=== PATIENT | male | born 2005 | race Caucasian/White ===

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

== ENCOUNTER 2025-02-25 19:40 | Inpatient (IN) | payer MEDICAID, SELFPAY ==
[2025-02-25 19:21] VITALS: BP 163/101; PULSE 123; RESP 16; TEMP 36.8; O2SAT 97; BMI 22.9
[2025-02-25] MEDS: nicotine 21 mg Patch 1 PATCH TRANSDERMA (21:12)
[2025-02-25 21:25] LABS: Basophils % 0.3 %; Eosinophils % 0.1 %; Hematocrit 39.3 % (37-53); Lymphocytes # 0.7 10^3/uL (1.5-6.5); Lymphocytes % 6.3 %; Mean Corpuscular HGB Conc 35.4 g/dL (30-55); Mean Corpuscular Hemoglobin 31.7 pg (27-33); Mean Corpuscular Volume 89.5 fl (82-101); Mean Platelet Volume 12.2 fL (7.4-10.4); Monocytes % 9.5 %; Neutrophils # 8.97 10^3/uL (1.8-8.0); Neutrophils % 83.6 %; Nucleated Red Blood Cells % 0 %; Platelet Count 193 10^3/cmm (157-399); Red Blood Count 4.39 10^6/uL (3.85-5.65); Red Cell Distribution Width 12.3 % (12.1-15.1); White Blood Count 10.73 10^3/uL (4.5-13.0)
[2025-02-25 21:30] LABS: Bilirubin Urine 1+ (Negative); Blood Urine Negative (Negative); Glucose Urine UA Negative (Normal); Ketones Urine Trace (Negative); Leukocyte Esterase Urine Negative (Negative); Nitrate Urine Negative (Negative); Protein Urine 1+ (Negative); Specific Gravity, Urine 1.021 (1.005-1.030); Urine Appearance Clear (CLEAR); Urine Color Dark Yellow (Yellow); pH Urine 6.5 (5-7)
[2025-02-25 21:35] LABS: Add Urine Microscopic? YES; Bacteria Urine None Seen /hpf; Hyaline Casts Urine 11.16 /lpf; RBC Urine 0-2 /hpf (0-2); Squamous Epithelial Cell Urine 0-5 /hpf (0-5); WBC Urine 0-5 /hpf (0-5)
[2025-02-25 21:37] LABS: Amphetamines Screen Urine Negative (Negative); Barbiturates Screen Urine Negative (Negative); Benzodiazepines Screen Urine Negative (Negative); Cocaine Screen Urine Negative (Negative); Opiate Screen Urine Negative (Negative); PCP Screen Urine Negative (Negative); THC Screen Urine Positive (Negative)
[2025-02-25 21:46] LABS: Alanine Aminotransferase 16 U/L (0-41); Albumin Level 4.5 g/dL (3.5-5.2); Alkaline Phosphatase 68 U/L (40-130); Anion Gap 15.7 (5-19); Aspartate Amino Transferase 17 U/L (0-40); Blood Urea Nitrogen 9 mg/dL (6-20); Calcium 9.8 mg/dL (8.5-10.5); Carbon Dioxide 25 mmol/L (22-29); Chloride 103 mmol/L (98-107); Creatinine Clr Calc Pharmacy 135.9943; Globulin 2.9 g/dL (1.3-4.6); Glomerular Filtration Rate 108.7 mL/min (90-130); Glucose 97 mg/dL (65-115); Osmolality Calculated 289 mOsm/kg (285-295); Potassium 3.7 mmol/L (3.5-5.1); Sodium 140 mmol/L (136-145); Total Bilirubin 0.5 mg/dL (0.15-1.2); Total Protein 7.4 g/dL (6.6-8.7)
[2025-02-25 21:51] LABS: Acetaminophen < 5.0 ug/mL (10-30); Salicylate < 0.3 mg/dL (3-10)
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
--- NOTE | 2025-02-26 00:48 | PC.NURSE ---
96 Hour Involuntary Hold Patient Rights have been reviewed with the patient and a copy of the same has been provided to him. Director Of Scientific Research was present at bedside during the presentation of Rights.
[2025-02-26 01:12] VITALS: BP 157/107; PULSE 95; RESP 18; TEMP 36.8; O2SAT 95
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
[2025-02-26 06:00] VITALS: BP 103/60; PULSE 80; RESP 16; O2SAT 98
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
[2025-02-26] MEDS: nicotine 21 mg Patch 1 PATCH TRANSDERMA (08:10)
[2025-02-26 14:00] VITALS: BP 135/88; PULSE 79; RESP 17; O2SAT 100
[2025-02-26] MEDS: nicotine 2 mg Gum BUCCAL (19:44)
[2025-02-26] MEDS: diphenhydrAMINE 50 mg Capsule PO (19:46)
[2025-02-26 22:00] VITALS: BP 121/68; PULSE 103; RESP 18; TEMP 37.1; O2SAT 97
[2025-02-27] MEDS: ondansetron 4 MG Tablet PO (01:15)
[2025-02-27 06:00] VITALS: BP 108/59; PULSE 79; RESP 16; TEMP 36.7; O2SAT 98
[2025-02-27] MEDS: nicotine 21 mg Patch 1 PATCH TRANSDERMA (08:30)
[2025-02-27 14:00] VITALS: BP 134/78; PULSE 116; RESP 16; TEMP 36.8; O2SAT 97
[2025-02-27] MEDS: nicotine 4 mg lozenge MUCOUS MEM ×2 (17:42→20:45)
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
[2025-02-27 19:22] VITALS: BP 141/82; PULSE 104; RESP 18; TEMP 36.9; O2SAT 99
[2025-02-28 06:00] VITALS: BP 104/68; PULSE 86; RESP 16; TEMP 36.7; O2SAT 98
[2025-02-28] MEDS: nicotine 4 mg lozenge MUCOUS MEM ×6 (07:59→21:19)
[2025-02-28 14:00] VITALS: BP 109/73; PULSE 122; RESP 16; TEMP 37.5; O2SAT 96
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
[2025-02-28 19:37] VITALS: BP 127/77; PULSE 115; RESP 18; TEMP 37.9; O2SAT 98
[2025-02-28] MEDS: ondansetron 4 MG Tablet PO (19:55)
[2025-03-01 06:00] VITALS: BP 108/75; PULSE 99; RESP 18; TEMP 36.9; O2SAT 99
[2025-03-01] MEDS: nicotine 4 mg lozenge MUCOUS MEM ×8 (07:17→21:32)
[2025-03-01 14:00] VITALS: BP 115/84; PULSE 109; RESP 18; TEMP 36.8; O2SAT 96
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
[2025-03-01 20:08] VITALS: BP 130/80; PULSE 105; RESP 22; TEMP 36.8; O2SAT 100
[2025-03-01] MEDS: trazodone 50 mg Tablet PO (23:55)
[2025-03-02 06:00] VITALS: BP 101/65; PULSE 82; RESP 16; TEMP 36.4; O2SAT 99
[2025-03-02] MEDS: nicotine 4 mg lozenge MUCOUS MEM ×4 (08:15→15:21)
[2025-03-02 14:00] VITALS: PULSE 107; TEMP 36.9
--- NOTE | 2025-03-02 15:33 | P.NPUDS_ITS ---
Diagnoses at Discharge Discharge Diagnosis (1) PTSD (post-traumatic stress disorder): Status: Inactive (2) MDD (major depressive episode), single episode, severe, no psychosis: Status: Ruled-out (3) Tetrahydrocannabinol (THC) use disorder, mild, abuse: Status: Resolved Reason for Visit Reason for Visit: si Involuntary Hold Information Hold Status: Legal Status: 96 Hour Hold Date/Time Hold Expires: 03/03/2025 @ 0001 96 Hour Hold: 96 Hour Involuntary Admission: No Discharge Data Studies Completed and Pending: Laboratory Results WBC 10.73 10^3/uL (4. 5-13.0) 02/25/25 21:13 RBC 4.39 10^6/uL (3.8 5-5.65) 02/25/25 21:13 Hgb 13.90 g/dL (13.2- 15.6) 02/25/25 21:13 Hct 39.3 % (37-53) 02/25/25 21:13 MCV 89.5 fl (82-101) 02/25/25 21:13 MCH 31.7 pg (27-33) 02/25/25 21:13 MCHC 35.4 g/dL (30-55) 02/25/25 21:13 RDW 12.3 % (12.1-15.1 ) 02/25/25 21:13 Plt Count 193 10^3/cmm (157 -399) 02/25/25 21:13 MPV 12.2 fL (7.4-10.4 ) H 02/25/25 21:13 Neut % (Auto) 83.6 % 02/25/25 21:13 Lymph % (Auto) 6.3 % 02/25/25 21:13 [place] % (Auto) 9.5 % 02/25/25 21:13 Eos % (Auto) 0.1 % 02/25/25 21:13 Baso % (Auto) 0.3 % 02/25/25 21:13 Neut # (Auto) 8.97 10^3/uL (1.8 -8.0) H 02/25/25 21:13 Lymph # (Auto) 0.7 10^3/uL (1.5- 6.5) L 02/25/25 21:13 [place] # (Auto) 1.0 10^3/uL (0.2- 0.9) H 02/25/25 21:13 Eos # (Auto) 0.0 10^3/uL (0.0- 0.8) 02/25/25 21:13 Baso # (Auto) 0.0 10^3/uL (0.0- 0.1) 02/25/25 21:13 Nucleated RBC % (a uto) 0 % 02/25/25 21:13 Nucleated RBCs # 0.0 /100WBC 02/25/25 21:13 Sodium 140 mmol/L (136-1 45) 02/25/25 21:13 Potassium 3.7 mmol/L (3.5-5 .1) 02/25/25 21:13 Chloride 103 mmol/L (98-10 7) 02/25/25 21:13 Carbon Dioxide 25 mmol/L (22-29) 02/25/25 21:13 Anion Gap 15.7 (5-19) 02/25/25 21:13 BUN 9 mg/dL (6-20) 02/25/25 21:13 Creatinine 0.9 mg/dL (0.7-1. 2) 02/25/25 21:13 GFR Calculation 108.7 mL/min (90- 130) 02/25/25 21:13 Glucose 97 mg/dL (65-115) 02/25/25 21:13 Calculated Osmolal ity 289 mOsm/kg (285- 295) 02/25/25 21:13 Calcium 9.8 mg/dL (8.5-10 .5) 02/25/25 21:13 Total Bilirubin 0.5 mg/dL (0.15-1 .2) 02/25/25 21:13 AST 17 U/L (0-40) 02/25/25 21:13 ALT 16 U/L (0-41) 02/25/25 21:13 Alkaline Phosphata se 68 U/L (40-130) 02/25/25 21:13 Total Protein 7.4 g/dL (6.6-8.7 ) 02/25/25 21:13 Albumin 4.5 g/dL (3.5-5.2 ) 02/25/25 21:13 Globulin 2.9 g/dL (1.3-4.6 ) 02/25/25 21:13 Urine Color Dark yellow (Yel low) A 02/25/25 19:40 Urine Appearance Clear (CLEAR) 02/25/25 19:40 Urine pH 6.5 (5-7) 02/25/25 19:40 Ur Specific Gravit y 1.021 (1.005-1.0 30) 02/25/25 19:40 Urine Protein 1+ (Negative) A 02/25/25 19:40 Urine Glucose (UA) Negative (Normal ) 02/25/25 19:40 Urine Ketones Trace (Negative) 02/25/25 19:40 Urine Blood Negative (Negati ve) 02/25/25 19:40 Urine Nitrate Negative (Negati ve) 02/25/25 19:40 Urine Bilirubin 1+ (Negative) H 02/25/25 19:40 Urine Urobilinogen 2.0 mg/dL (Negati ve) H 02/25/25 19:40 Ur Leukocyte Luz ase Negative (Negati ve) 02/25/25 19:40 Urine RBC 0-2 /hpf (0-2) 02/25/25 19:40 Urine WBC 0-5 /hpf (0-5) 02/25/25 19:40 Ur Squamous Epith Cells 0-5 /hpf (0-5) 02/25/25 19:40 Amorphous Sediment Not Reportable 02/25/25 19:40 Urine Bacteria None seen /hpf (N ONE) 02/25/25 19:40 Hyaline Casts 11.16 /lpf 02/25/25 19:40 Salicylates < 0.3 mg/dL (3-10 ) L 02/25/25 21:13 Urine Opiates Scre en Negative ng/mL (N egative) 02/25/25 19:40 Acetaminophen < 5.0 ug/mL (10-3 0) L 02/25/25 21:13 Ur Barbiturates Sc reen Negative ng/mL (N egative) 02/25/25 19:40 Ur Phencyclidine S crn Negative ng/mL (N egative) 02/25/25 19:40 Ur Amphetamines Sc reen Negative ng/mL (N egative) 02/25/25 19:40 U Benzodiazepines Scrn Negative ng/mL (N egative) 02/25/25 19:40 Urine Cocaine Scre en Negative ng/mL (N egative) 02/25/25 19:40 U Marijuana (THC) Screen Positive ng/mL (N egative) H 02/25/25 19:40 Vitals: Last Vital Signs Temp 98.4 F 03/02/25 14:00 Pulse 107 H 03/02/25 14:00 Resp 16 03/02/25 06:00 BP 101/65 03/02/25 06:00 Pulse Ox 99 03/02/25 06:00 O2 Del Method Room Air 03/02/25 06:00 Discharge Plan Discharge Patient Disposition: Home Condition: Stable Prescriptions: Continued methocarbamol 750 mg tablet 750 mg PO Q6H PRN (Reason: spasms) Qty: 20 0RF ondansetron 4 mg tablet,disintegrating 4 mg PO Q6H PRN (Reason: nausea and vomiting) Qty: 14 0RF lansoprazole [Prevacid] 30 mg capsule,delayed release(DR/EC) 30 mg PO DAILY Qty: 30 0RF ketorolac 10 mg tablet 10 mg PO TID PRN (Reason: pain) Qty: 10 0RF Discharge Orders: Discharge Order (Routine); Ordered 03/02/25 Ordered By: Eddie Rogers Referrals: Regina Garcia[facility] [Other] - 03/27/25 10:00 am Charlotte Reynoso FNP [Nurse Practitioner, Nurse Practitioner] - 03/07/25 1:05 pm Referral Note: Hospital followup Starla Campbell DO [Primary Care Provider, Family Practice] Discharge Diet: Regular Discharge Activity: Resume usual activity Patient Instructions: Opioid Safety Discharge Attestations NPU Time Spent in Discharge Care*: less than 30 min Specific Discharge Activities: Specific discharge activities: educating patient, discussing with transplant case manager/social workers/dc planners, documenting/other paperwork and evaluating patient/reviewing data Coding Level of Care Code Acute Code for g Fwd Diagnoses PTSD (post-traumatic stress disorder) F43.10 MDD (major depressive episode), single episode, severe, no psychosis F32.2 Tetrahydrocannabinol (THC) use disorder, mild, abuse F12.10
[2025-03-02 15:49] VITALS: BP 101/65; PULSE 107; RESP 18; TEMP 36.9; O2SAT 99
== END 2025-03-02 16:12 | disposition home or self-care (01) | DRG 885 ==
LOC: ER 02-26 00:18 → NP 02-26 00:42
PROVIDERS: Emergency Medicine; Admitting Provider Psychiatry & Neurology Psychiatry; Emergency Provider Emergency Medicine; PCP Family Medicine; Visit Provider Psychiatry & Neurology Psychiatry
DX: F33.2 Major depressive disorder, recurrent severe without psychotic features (principal); R45.851 Suicidal ideations; F41.9 Anxiety disorder, unspecified; Z79.899 Other long term (current) drug therapy; F43.10 Post-traumatic stress disorder, unspecified; F12.10 Cannabis abuse, uncomplicated
CPT/HCPCS: 36415; 80053; 80306; 80307; 81001; 85025; 97150; 97165; 99285; J9999; Q0162; Q0163

== ENCOUNTER 2025-07-18 22:07 | Emergency (ER) | payer MEDICAID, SELFPAY ==
--- OUTSIDE RECORDS SUMMARY | 2025-07-16 11:08 | XMS_ITS | Encounter Summary ---
Author Organization [facility] Address 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 No 07/16/2025 Transportation Needs Answer Date Record ed Have you gone without health care because you didn t have a way to get there? Or worry about transportation for future doctor visits, supervisor picking crew medication, etc.? No 2024 Housing Stability Answer Date Recorded Do you worry you won t have a steady place to sleep or struggle to pay rent or mortgage? No 07/16/2025 Utility Needs Answer Date Recorded Do you have difficulty payin g for utility costs (electric, water or gas bills)? No 07/16/2025 Medication Needs Answer Date Recorded Have you skipped taking medi cation due to cost or worry you can t afford new medications? No 07/16/2025 Feeling Safe Answer Date Recorded Are you in a relationship wi th someone who hurts you emotionally and/or physically? 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 Gender Identity Not on file Sexual Orientation Not on file documented as of this encounter Last Filed Vital Signs Vital Sign Reading Time Taken Comments Blood Pressure 130/72 07/16/2025 1:38 PM CDT Pulse 91 07/16/2025 12:15 PM CDT Temperature 36.6 C (97.8 F) 07/16/2025 1:38 PM CDT Respiratory Rate 18 07/16/2025 1:38 PM CDT Oxygen Saturation 97% 07/16/2025 1:38 PM CDT Inhaled Oxygen Concentration - - Weight 62.5 kg (137 lb 12.8 oz) 025 11:08 AM CDT Height 177.8 cm (5' 10 ) 07/16/2025 11: 08 AM CDT Body Mass Index 19.77 07/16/2025 11:08 AM CDT documented in this encounter Discharge Instructions * Discharge Instructions* Heath Castellano MD - 07/16/2025 1:44 PM CDT Please restart fluids slowly without drinking any soda or juices and definitely avoid coffee and energy drinks. Please follow-up with your primary doctor to monitor your liver function to make sure that this gets better. If his symptoms do not improve or get worse and you are continuing to have the issues, return to the ER. Please continue taking Compazine you may take the next dose at approximately 3 PM today 5 mg make sure you take it with Benadryl 25 mg. Please avoid anything with animal products to not have recurrence of the allergic reaction. * Attachments The following attachments cannot be sent through Care Everywhere. * Nausea and Vomiting (Bruneian) * Prochlorperazine (Bruneian) documented in this encounter Medications at Time of Discharge EPINEPHrine (EPIPEN) 0.3 mg/0.3 mL Auto-InjectorInd ications:Allergy to galactose-alpha- 1,3-galactose Inject 0.3 mL (0.3 mg) by intramuscular injection 1 time daily as needed for Anaphylaxis. 2 Each 3 11/28/2024 prochlorperazine maleate (COMPAZINE) 5 mg tablet Take 1 Tablet (5 mg) by mouth every 8 hours as needed for Nausea/Emesis. 9 Tablet 07/16/2025 documented as of this encounter ED Notes * Radha Trujillo RN - 07/16/2025 1:40 PM CDT States ready to go home. * Radha Trujillo RN - 07/16/2025 1:40 PM CDT Patient resting. * Radha Trujillo RN - 07/16/2025 11:33 AM CDT Patient arrived states he is having allergic reaction possibly to the flour from the chicken he hadlast night, states it is my alpha gal. No hives noted. Patient having dry heaves alternating with small amount of emesis. States he has abdominal pain. * Heath Castellano MD - 07/16/2025 11:06 AM CDT 07/16/25 1:07 PM HISTORY OF PRESENT ILLNESS History of Present Illness This is a 19-year-old female presenting with vomiting. She suspects that her symptoms may be a reaction to the chicken she consumed the previous night. She reports feeling extremely cold and has been experiencing excessive sweating. Her symptoms began around 9:30 AM today, including difficulty breathing and abdominal pain, which she rates as an 8 or 9 on a scale of 1 to 10. She has vomited several times since the onset of her symptoms. She has not taken any Tylenol recently and does not consume alcohol. She continues to use marijuana. She reports that her nausea has subsided, but she still feels the urge to vomit. She also notes a decrease in shaking. She reports no known medical conditions or allergies and is not currently on any medications. SOCIAL HISTORY She does not drink alcohol. She admits to smoking marijuana. PAST MEDICAL HISTORY REVIEWED MEDICAL: Patient has a past medical history of Generalized anxiety disorder, GERD (gastroesophageal reflux disease), Patient denies relevant medical history, and Peptic ulcer. SURGICAL: Patient has a past surgical history that includes pt denies relevant surgical history. ALLERGIES Iodinated contrast media; Sesame seed; Shrimp; Alpha-gal (yznyhqpck-kxgzx-5,3-galactose); and Milk PHYSICAL EXAM INITIAL VS BP: (!) 161/121 (07/16/25 1108), Heart Rate: 94 bpm (07/16/25 110), Resp: 30 (07/16/25 110), Pulse: 97 (07/16/25 1110), Temp: 97.1 ??F (36.2 ??C) (07/16/25 1108), Temp src: Oral (07/16/25 1300), SpO2: 100 % (07/16/25 1108), Height: 5' 10 (177.8 cm) (07/16/25 1108), Weight: 62.5 kg (137 lb 12.8 oz) (07/16/25 1108), BMI (Calculated): 19.77 (07/16/25 110) No LMP for male patient. Blood pressure 130/72, pulse 91, temperature 97.8 ??F (36.6 ??C), resp. rate 18, height 5' 10 (1.778 m), weight 62.5 kg (137 lb 12.8 oz), SpO2 97%. Physical Exam Vitals and nursing note reviewed. Constitutional: General: He is in acute distress. Appearance: He is normal weight. He is ill-appearing and diaphoretic. HENT: Head: Normocephalic. Mouth/Throat: Mouth: Mucous membranes are moist. Eyes: Extraocular Movements: Extraocular movements intact. Conjunctiva/sclera: Conjunctivae normal. Pupils: Pupils are equal, round, and reactive to light. Cardiovascular: Rate and Rhythm: Normal rate and regular rhythm. Pulses: Normal pulses. Pulmonary: Effort: Pulmonary effort is normal. No respiratory distress. Musculoskeletal: General: Normal range of motion. Skin: General: Skin is warm. Capillary Refill: Capillary refill takes less than 2 seconds. Neurological: General: No focal deficit present. Mental Status: He is alert and oriented to person, place, and time. Mental status is at baseline. Cranial Nerves: No cranial nerve deficit. Psychiatric: Mood and Affect: Mood normal. Behavior: Behavior normal. DIAGNOSTICS LAB: CBC WITH DIFFERENTIAL - Abnormal Result Value WBC 8.6 RBC 4.86 HEMOGLOBIN 15.3 HEMATOCRIT 41.3 MCV 85.0 MCH 31.5 MCHC 37.0 (*) RDW 12.2 RDW-STDEV 36.9 PLATELETS 273 MPV 11.6 NEUTROPHILS 58 LYMPHOCYTES 32 MONOCYTES 7 EOSINOPHILS 3 BASOPHILS 1 IMMATURE GRANULOCYTES 0 NEUTROPHIL ABSOLUTE 4.99 LYMPHOCYTE ABSOLUTE 2.73 MONOCYTE ABSOLUTE 0.63 EOSINOPHIL ABSOLUTE 0.22 BASOPHILS ABSOLUTE 0.05 IMMATURE GRANULOCYTES ABSOLUTE 0.01 COMPREHENSIVE METABOLIC PANEL - Abnormal SODIUM 140 POTASSIUM 3.8 CHLORIDE 102 CO2 20 (*) CALCIUM 10.6 (*) BUN 11 CREATININE 0.96 GLUCOSE 148 (*) TOTAL PROTEIN 8.0 ALBUMIN 5.0 BILIRUBIN TOTAL 0.5 ALKALINE PHOSPHATASE 80 AST 67 (*) ALT 166 (*) GFR >60 ANION GAP 18 LACTIC ACID - Abnormal LACTIC ACID 3.7 (*) URINALYSIS WITH REFLEX MICROSCOPIC - Abnormal COLOR UA Yellow CLARITY UA Clear SPECIFIC GRAVITY UA 1.020 PH UA 7.0 LEUKOCYTE ESTERASE UA Negative NITRITE UA Negative PROTEIN UA 1+ (*) GLUCOSE UA Negative KETONES UA Negative UROBILINOGEN UA 0.2 BILIRUBIN UA Negative BLOOD UA Negative URINALYSIS MICROSCOPY ONLY - Abnormal WBC UA 3-5 (*) RBC UA 0-2 BACTERIA UA Negative EPITHELIAL CELLS, URINE 0-5 HYALINE CAST 0-2 SEDIMENTATION RATE - Normal ESR (SEDIMENTATION RATE) 6 LIPASE - Normal LIPASE 23 C-REACTIVE PROTEIN - Normal CRP <3.0 MAGNESIUM LEVEL - Normal MAGNESIUM 1.8 RADIOLOGY: No orders to display EKG: Results Laboratory Studies Blood work shows some liver inflammation. Results independently interpreted by Heath Castellano MD PROCEDURES Procedures MEDICAL DECISION MAKING AND PLAN OF CARE Assessment & Plan Initial Assessment: Patient presents with vomiting, abdominal pain rated 8-9/10, nausea, and mild difficulty breathing.Symptoms began at 9:30 AM on 07/16/2025. Blood work shows liver inflammation. Differential Diagnosis: - Food poisoning: Possible due to recent chicken consumption. Monitor symptoms. - Marijuana use: Discussed as a potential trigger for vomiting. Advised to discontinue use. - Alcohol consumption: Patient denies alcohol use. Not considered. - Liver inflammation: Blood work indicates liver inflammation. Investigate further. ED Course: - [place] provided for comfort. - Benadryl, Compazine, 1 L of fluids, dexamethasone, famotidine, Zofran, pantoprazole and after allthese treatments were administered, patient continued to have some nausea with feeling of wanting to vomit and Haldol was provided as an injection 2.5 mg. After the Haldol patient felt significant improvement and did not have any more vomiting and felt like he was able to tolerate fluids which was confirmed by p.o. challenge. Patient felt that he was comfortable with going home and continuing his care there. Patient was provided with a prescription of Compazine to take with Benadryl and avoid any foods that contain animal product. Advised to follow-up with his primary care doctor about transaminitis to make sure that stays stable. Lipase and bilirubin levels were normal so at this time concern for any gallbladder disease and blockage was not present, however advised patient to return to the ER if continues to have significant pain, specifically if pain appears in the right upper quadrant. Clinical Impression: - Vomiting - Liver inflammation Follow-Up: - Monitor until vomiting ceases or condition stabilizes. Patient Education: Advised to discontinue marijuana use. Informed Haldol may cause drowsiness. Advised to abstain fromalcohol consumption. Medical Decision Making Amount and/or Complexity of Data Reviewed Labs: ordered. Risk Prescription drug management. Clinical Scoring & Consults Medications Administered During the ED Stay from 07/16/2025 1106 to 07/16/2025 1420 Date/Time Order Dose Route Action 07/16/2025 1119 CDT prochlorperazine (COMPAZINE) injection 5 mg 5 mg IV Given 07/16/2025 1125 CDT diphenhydrAMINE (BENADRYL) injection 25 mg 25 mg IV Given 07/16/2025 1147 CDT sodium chloride 0.9 % bolus solution 1,000 mL 0 mL IV Stopped 07/16/2025 1117 CDT sodium chloride 0.9 % bolus solution 1,000 mL 1,000 mL IV New Bag 07/16/2025 1126 CDT sodium chloride flush injection 10 mL 10 mL IV Given 07/16/2025 1126 CDT sodium chloride flush injection 10 mL 10 mL IV Given 07/16/2025 1116 CDT dexAMETHasone (DECADRON) injection 10 mg 10 mg IV Given 07/16/2025 1123 CDT famotidine PF (PEPCID) 20 mg/2 mL injection 20 mg 20 mg IV Given 07/16/2025 1140 CDT ondansetron (ZOFRAN) 4 mg/2 mL injection 4 mg 4 mg IV Given 07/16/2025 1142 CDT pantoprazole (PROTONIX) 40 mg in sodium chloride 0.9% 10 mL injection 40 mg IV Given 07/16/2025 1303 CDT haloperidol lactate (HALDOL) injection 2.5 mg 2.5 mg IM Given Discharge Medication List as of 07/16/2025 1:48 PM START taking these medications Details prochlorperazine maleate (COMPAZINE) 5 mg tablet Take 1 Tablet (5 mg) by mouth every 8 hours as needed for Nausea/Emesis., Disp-9 Tablet, R-0 CONTINUE these medications which have NOT CHANGED Details EPINEPHrine (EPIPEN) 0.3 mg/0.3 mL Auto-Injector Inject 0.3 mL (0.3 mg) by intramuscular injection 1 time daily as needed for Anaphylaxis., Disp-2 Each, R-3 STOP taking these medications venlafaxine 37.5 mg Extended Release 24 hour tablet Comments: Reason for Stopping: hydrOXYzine HCL (ATARAX) 10 mg tablet Comments: Reason for Stopping: pantoprazole (Protonix) 20 mg Tablet, Delayed Release (E.C.) Comments: Reason for Stopping: famotidine (PEPCID) 40 mg tablet Comments: Reason for Stopping: metoclopramide HCl (REGLAN) 10 mg tablet Comments: Reason for Stopping: ondansetron (ZOFRAN ODT) 8 mg Tablet, Rapid Dissolve Comments: Reason for Stopping: methocarbamoL (ROBAXIN) 750 mg tablet Comments: Reason for Stopping: naproxen (NAPROSYN) 500 mg tablet Comments: Reason for Stopping: fluticasone propionate (FLONASE) 50 mcg/spray [place], Suspension nasal inhaler Comments: Reason for Stopping: LAST VS BP: 130/72 (07/16/25 1338), Heart Rate: (!) 108 bpm (07/16/25 1338), Resp: 18 (07/16/25 1338), Pulse: 91 (07/16/25 1215), Temp: 97.8 ??F (36.6 ??C) (07/16/25 1338), Temp src: Oral (07/16/25 1300), SpO2: 97 % (07/16/25 1338) CLINICAL IMPRESSION Diagnoses Diagnosis Comment Added By Time Added Nausea and vomiting, unspecified vomiting type [R11.2] Heath Castellano MD 07/16/2025 1:43 PM 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 See after visit summary for patient education on discharged patients. 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 # The patient, a 19-year-old female, presented with vomiting, abdominal pain rated 8-9/10, nausea, and mild difficulty breathing. Symptoms began at 9:30 AM on 07/16/2025, suspected to be a reaction to chicken consumed the previous night. The patient reported feeling extremely cold, excessive sweating, and a decrease in shaking. # Abnormal findings included elevated liver transaminase levels, with blood work indicating liver inflammation. The comprehensive metabolic panel showed elevated glucose (148), calcium (10.6), AST (67), ALT (166), and lactic acid (3.7). Urinalysis showed 1+ protein and 3-5 WBCs. # Medications administered included Benadryl, Compazine, 1 L of fluids, dexamethasone, famotidine, Zofran, pantoprazole, and Haldol. After Haldol administration, the patient experienced significant improvement, with no further vomiting and the ability to tolerate fluids. # Differential diagnoses considered were food poisoning, marijuana use, and liver inflammation. The patient was advised to discontinue marijuana use. ## Follow_up_orders: ## # The patient was provided with a prescription for Compazine to take with Benadryl and advised to avoid foods containing animal products. # Follow-up with the primary care doctor is recommended to monitor liver transaminase levels and ensure stability. # The patient was advised to return to the ER if significant pain continues, especially if it appears in the right upper quadrant. # Advised to discontinue marijuana use and abstain from alcohol consumption. ## Home_Situation: ## # No specific factors impairing follow-up care were noted. The patient did not report any transportation, caregiver support, financial, or language barriers. documented in this encounter Plan of Treatment Not on file documented as of this encounter Procedures Procedure Name Priority Date/Time Associated Diagnosis Comments URINALYSIS MICROSCOPY ONLY Stat 07/16/2025 12:59 PM CDT DRUG SCREEN, URINE Stat 07/16/2025 12 :59 PM CDT URINALYSIS W/REFLEX MICROSCOPIC Stat 07/16/2025 12:59 PM CDT LACTIC ACID Stat 07/16/2025 11:11 AM CDT CBC WITH DIFFERENTIAL Stat 07/16/2025 11:11 AM CDT SEDIMENTATION RATE Stat 07/16/2025 11 :11 AM CDT C-REACTIVE PROTEIN Stat 07/16/2025 11 :11 AM CDT MAGNESIUM LEVEL Stat 07/16/2025 11:11 AM CDT LIPASE Stat 07/16/2025 11:11 AM CDT COMPREHENSIVE METABOLIC PANEL Stat 07/16/2025 11:11 AM CDT documented in this encounter Results * (ABNORMAL) DRUG SCREEN, URINE (07/16/2025 12:59 PM CDT) [facility] CANNABINOIDS QUAL, URINE Presumptive Positive(A) Negative 07/16/2025 1:55 PM CDT [facility] PCP QUAL, URINE Negative Negative 1:55 PM CDT [facility] COCAINE QUAL URINE Negative Negative 2024 1:55 PM CDT [facility] METHAMPHETAMINE QUAL, URINE Negative Negative 07/16/2025 1:55 PM CDT [facility] OPIATE QUAL, URINE Negative Negative 2024 1:55 PM CDT [facility] AMPHETAMINE QUAL, URINE Negative Negative 07/16/2025 1:55 PM CDT [facility] BENZODIAZEPINE QUAL, URINE Negative Negative 07/16/2025 1:55 PM CDT [facility] TRICYCLICS QUAL, URINE Negative Negative 07/16/2025 1:55 PM CDT [facility] METHADONE QUAL, URINE Negative Negative 07/16/2025 1:55 PM CDT [facility] BARBITURATE QUAL, URINE Negative Negative 07/16/2025 1:55 PM CDT [facility] OXYCODONE QUAL, URINE Negative Negative 07/16/2025 1:55 PM CDT [facility] SPECIFIC GRAVITY UA 1.020 1.003 - 1.035 07/16/2025 1:55 PM CDT [facility] Urine URINE SPECIMEN OBTAINED BY CLEAN CATCH PROCEDURE / Unknown 07/16/2025 12:59 PM CDT 07/16/2025 1:02 PM CDT Narrative [facility] - 07/16/2025 1:55 PM CDT This test is a qualitative screen. The presumptive positive results should not be used for legal purposes. If confirmation of results is desired, the lab must be contacted without delay. Drug Screening Threshold Amphetamines 500 ng/mL Barbiturates 200 ng/mL Benzodiazepines 150 ng/mL Cocaine Metabolites 150 ng/mL Methamphetamine 500 ng/mL Methadone 200 ng/mL Opiates 100 ng/mL Oxycodone 100 ng/mL Phencyclidine 25 ng/mL THC Cannabinoids 50 ng/mL Tricyclic Antidepressants 300 ng/mL us Heath Castellano MD URINE ORDERABLES Final Result Performing Organization Address City/[facility]/ZIP Co de Phone Number [facility] CLIA # [id number] [address] [place] [address] * (ABNORMAL) URINALYSIS MICROSCOPY ONLY (07/16/2025 12:59 PM CDT) WBC UA 3-5(A) 0 - 2 /hpf 07/16/2025 1:19 PM CDT [facility] RBC UA 0-2 0 - 2 /hpf 07/16/2025 1:19 PM CDT [facility] BACTERIA UA Negative Negative /hpf 07/16/2025 1:19 PM CDT [facility] EPITHELIAL CELLS, URINE 0-5 0 - 5 /hpf 07/16/2025 1:19 PM CDT [facility] HYALINE CAST 0-2 None Seen, 0-2 /lpf 07/16/2025 1:19 PM CDT [facility] Urine URINE SPECIMEN OBTAINED BY CLEAN CATCH PROCEDURE / Unknown 07/16/2025 12:59 PM CDT 07/16/2025 1:02 PM CDT us Heath Castellano MD URINE ORDERABLES Final Result Performing Organization Address City/[facility]/ZIP Co de Phone Number [facility] CLIA # [id number] [address] [place] [address] [id number] * (ABNORMAL) URINALYSIS WITH REFLEX MICROSCOPIC (07/16/2025 12:59 PM CDT) COLOR UA Yellow Pale to Dark Yellow 07/16/2025 1:19 PM CDT [facility] CLARITY UA Clear Clear 07/16/2025 1:19 PM CDT [facility] SPECIFIC GRAVITY UA 1.020 1.003 - 1.035 07/16/2025 1:19 PM CDT [facility] PH UA 7.0 5.0 - 8.0 07/16/2025 1:19 PM CDT [facility] LEUKOCYTE ESTERASE UA Negative Negative 07/16/2025 1:19 PM CDT [facility] NITRITE UA Negative Negative 07/16/2025 1:19 PM CDT [facility] PROTEIN UA 1+(A) Negative 07/16/2025 1:19 PM T [facility] GLUCOSE UA Negative Negative 07/16/2025 1:19 PM CDT [facility] KETONES UA Negative Negative 07/16/2025 1:19 PM CDT [facility] UROBILINOGEN UA 0.2 <2.0 mg/dL 1:19 PM T [facility] BILIRUBIN UA Negative Negative 07/16/2025 1:19 PM T [facility] BLOOD UA Negative Negative 07/16/2025 1:19 PM T [facility] Urine URINE SPECIMEN OBTAINED BY CLEAN CATCH PROCEDURE / Unknown 07/16/2025 12:59 PM CDT 07/16/2025 1:02 PM CDT us Heath Castellano MD URINE ORDERABLES Final Result [facility] CLIA # [id number] [address] [place] [phone] * MAGNESIUM LEVEL (07/16/2025 11:11 AM CDT) MAGNESIUM 1.8 1.7 - 2.2 mg/dL 07/16/2025 11:38 AM CDT [facility] Blood Venipuncture / Unknown 07/16/2025 11:11 AM CDT 07/16/2025 11:18 AM CDT us Heath Castellano MD CHEMISTRY ORDERABLES Final Resu lt Performing Organization Address City/[facility]/ZIP Co de Phone Number [facility] CLIA # [id number] [address] [place] [address] * C-REACTIVE PROTEIN (07/16/2025 11:11 AM CDT) CRP <3.0 <5.0 mg/L 07/16/2025 11:38 AM CDT [facility] Blood Venipuncture / Unknown 07/16/2025 11:11 AM CDT 07/16/2025 11:18 AM CDT Result Elsie Castellano MD CHEMISTRY ORDERABLES Final Resu lt Performing Organization Address [facility] Co de Phone Number [facility] CLIA # [id number] [address] [place] [phone] * (ABNORMAL) LACTIC ACID (07/16/2025 11:11 AM CDT) LACTIC ACID 3.7(H) <=2.0 mmol/L 07/16/2025 11:36 AM CDT [facility] Blood BLOOD SPECIMEN / Unknown Venipuncture / Unknown 07/16/2025 11:11 AM CDT 07/16/2025 11:18 AM CDT us Heath Castellano MD CHEMISTRY ORDERABLES Final Resu lt Performing Organization Address City/[facility]/ZIP Co de Phone Number [facility] CLIA # [id number] [address] [place] [phone] * LIPASE (07/16/2025 11:11 AM CDT) LIPASE 23 13 - 60 U/L 07/16/2025 11:38 AM [facility] Blood Venipuncture / Unknown 07/16/2025 11:11 AM CDT 07/16/2025 11:18 AM CDT Heath Castellano MD CHEMISTRY ORDERABLES Final Resu lt [facility] CLIA # [id number] [address] [place] [address] [phone] * (ABNORMAL) COMPREHENSIVE METABOLIC PANEL (07/16/2025 11:11 AM CDT) SODIUM 140 136 - 145 mmol/L 07/16/2025 11:38 AM [facility] POTASSIUM 3.8 3.5 - 5.1 mmol/L 07/16/2025 11:38 AM [facility] CHLORIDE 102 98 - 107 mmol/L 07/16/2025 11:38 AM [facility] CO2 20(L) 22 - 29 mmol/L 07/16/2025 11:38 AM [facility] CALCIUM 10.6(H) 8.6 - 10.0 mg/dL 07/16/2025 11:38 AM [facility] BUN 11 6 - 20 mg/dL 07/16/2025 11:38 AM [facility] CREATININE 0.96 0.67 - 1.17 mg/dL 07/16/2025 11:38 AM [facility] GLUCOSE 148(H) 74 - 99 mg/dL 07/16/2025 11:38 AM [facility] TOTAL PROTEIN 8.0 6.6 - 8.7 g/dL 07/16/2025 11:38 AM [facility] ALBUMIN 5.0 3.5 - 5.2 g/dL 07/16/2025 11:38 AM [facility] BILIRUBIN TOTAL 0.5 0.0 - 1.2 mg/dL 07/16/2025 11:38 AM CDT [facility] ALKALINE PHOSPHATASE 80 40 - 129 U/L 07/16/2025 11:38 AM CDT [facility] AST 67(H) 0 - 50 U/L 07/16/2025 11:38 AM CDT [facility] ALT 166(H) 0 - 50 U/L 07/16/2025 11:38 AM T [facility] GFR >60 >=60 mL/min/1.7 3 sq meter 07/16/2025 11:38 AM CDT [facility] Comment:eGFR calculated with 2020 CKD-EPI equation. Vegetarian diet, extremely high or low muscle mass, and may affect results. Cystatin C with Glomerular Filtration Rate is a suitable alternative for these patients. ANION GAP 18 5 - 20 mmol/L 07/16/2025 11:38 AM CDT [facility] Blood Venipuncture / Unknown 07/16/2025 11:11 AM CDT 07/16/2025 11:18 AM CDT us Heath Castellano MD CHEMISTRY ORDERABLES Final Resu lt [facility] CLIA # [id number] [address] [place] [phone] * SEDIMENTATION RATE (07/16/2025 11:11 AM CDT) ESR (SEDIMENTATION RATE) 6 0 - 15 mm/Hr 07/16/2025 11:26 AM CDT [facility] Blood Venipuncture / Unknown 07/16/2025 11:11 AM CDT 07/16/2025 11:18 AM CDT Narrative [facility] - 07/16/2025 11:26 AM CDT Tube Lot: [id number] Exp Date: 10/11/2026 QC1 LOT [id number] EXP.10/16/2025 QC2 LOT [id number] EXP.10/16/2025 us Heath Castellano MD HEMATOLOGY ORDERABLES Final Res ult [facility] CLIA # [id number] [address] [place] [address] * (ABNORMAL) CBC WITH DIFFERENTIAL (07/16/2025 11:11 AM CDT) WBC 8.6 4.2 - 9.1 K/uL 07/16/2025 11:25 AM [facility] RBC 4.86 4.63 - 6.08 M/uL 07/16/2025 11:25 AM [facility] HEMOGLOBIN 15.3 13.7 - 17.5 g/dL 07/16/2025 11:25 AM [facility] HEMATOCRIT 41.3 40.1 - 51.0 % 07/16/2025 11:25 AM [facility] MCV 85.0 79.0 - 92.2 fL 07/16/2025 11:25 AM [facility] MCH 31.5 25.7 - 32.2 pg 07/16/2025 11:25 AM [facility] MCHC 37.0(H) 32.3 - 36.5 g/dL 07/16/2025 11:25 AM [facility] RDW 12.2 11.0 - 14.5 % 07/16/2025 11:25 AM [facility] RDW-STDEV 36.9 36.9 - 56.9 fL 07/16/2025 11:25 AM [facility] PLATELETS 273 130 - 400 K/uL 07/16/2025 11:25 AM [facility] MPV 11.6 10.0 - 14.8 fL 07/16/2025 11:25 AM [facility] NEUTROPHILS 58 34 - 68 % 07/16/2025 11:25 AM [facility] LYMPHOCYTES 32 22 - 53 % 07/16/2025 11:25 AM [facility] MONOCYTES 7 5 - 12 % 07/16/2025 11:25 AM [facility] EOSINOPHILS 3 1 - 7 % 07/16/2025 11:25 AM [facility] BASOPHILS 1 0 - 1 % 07/16/2025 11:25 AM [facility] IMMATURE GRANULOCYTES 0 % 07/16/2025 11:25 AM [facility] NEUTROPHIL ABSOLUTE 4.99 1.78 - 5.38 K/uL 07/16/2025 11:25 AM [facility] LYMPHOCYTE ABSOLUTE 2.73 1.20 - 3.40 K/uL 07/16/2025 11:25 AM [facility] MONOCYTE ABSOLUTE 0.63 0.30 - 0.82 K/uL 07/16/2025 11:25 AM [facility] EOSINOPHIL ABSOLUTE 0.22 0.04 - 0.54 K/uL 07/16/2025 11:25 AM [facility] BASOPHILS ABSOLUTE 0.05 0.01 - 0.08 K/uL 07/16/2025 11:25 AM [facility] IMMATURE GRANULOCYTES ABSOLUTE 0.01 K/uL 07/16/2025 11:25 AM [facility] Blood Venipuncture / Unknown 07/16/2025 11:11 AM CDT 07/16/2025 11:18 AM CDT us Heath Castellano MD HEMATOLOGY ORDERABLES Final Res ult [facility] # [id number] [address] [place] [id number] documented in this encounter Visit Diagnoses Diagnosis Nausea and vomiting, unspecified vomiting type- Primary Allergic reaction to alpha-gal Elevated liver transaminase level Allergic reaction to alpha-gal Nausea and vomiting Nausea with vomiting documented in this encounter Administered Medications Inactive Administered Medications - up to 3 most recent administrations Medication Order MAR Action Action Date Dose Rate Site dexAMETHasone (DECADRON) injection 10 mg 10 mg, IV, ONE TIME ONLY, 1 dose, On 07/16/25 at 1115, Routine Given 07/16/2025 11:16 AM CDT 10 mg diphenhydrAMINE (BENADRYL) injection 25 mg 25 mg, IV, ONE TIME ONLY, 1 dose, On 07/16/25 at 1115, Routine Given 07/16/2025 11:25 AM CDT 25 mg famotidine PF (PEPCID) 20 mg/2 mL injection 20 mg 20 mg, IV, ONE TIME ONLY, 1 dose, On 07/16/25 at 1115, Routine Given 07/16/2025 11:23 AM CDT 20 mg haloperidol lactate (HALDOL) injection 2.5 mg 2.5 mg, IM, ONE TIME ONLY, 1 dose, On 07/16/25 at 1300, Routine Given 07/16/2025 1:03 PM CDT 2.5 mg Ventrogluteal, Left ondansetron (ZOFRAN) 4 mg/2 mL injection 4 mg 4 mg, IV, ONE TIME ONLY, 1 dose, On 07/16/25 at 1145, Routine Given 07/16/2025 11:40 AM CDT 4 mg pantoprazole (PROTONIX) 40 mg in sodium chloride 0.9% 10 mL injection 40 mg, IV, ONE TIME ONLY, 1 dose, On 07/16/25 at 1145, Routine, For vial+diluent: 10 mL NS is needed to reconstitute pantoprazole vial. For doses less than 40 mg Epic may default less than 10 mL NS. Pharmacist to change NS dispense amount to 10 mL., Indication: Stress ulcer prophylaxis Given 07/16/2025 11:42 AM CDT 40 mg prochlorperazine (COMPAZINE) injection 5 mg 5 mg, IV, ONE TIME ONLY, 1 dose, On 07/16/25 at 1115, Routine Given 07/16/2025 11:19 AM CDT 5 mg sodium chloride 0.9 % bolus solution 1,000 mL 1,000 mL, IV, ONE TIME ONLY, 1 dose, On 07/16/25 at 1115, at 2,000 mL/hr, Administer over 30 Minutes, Routine New Bag 07/16/2025 11:17 AM CDT 1,000 mL 2000 mL/hr sodium chloride flush injection 10 mL 10 mL, IV, EVERY 12 HOURS (BlD), First dose on 07/16/25 at 1115, Until Discontinued, Routine Given 07/16/2025 11:26 AM CDT 10 mL sodium chloride flush injection 10 mL 10 mL, IV, SEE ADMIN INSTRUCTIONS, Starting on 07/16/25 at 1111, Until 07/16/25 at 1546, Routine Given 07/16/2025 11:26 AM CDT 10 mL documented in this encounter Active and Recently Administered Medications Times are shown in CDT. Scheduled Medication Order 07/14/2025 07/15/2025 07/16/2025 dexAMETHasone (DECADRON) injection 10 mg (COMPLETED) 10 mg, IV, ONE TIME ONLY, 1 dose, On 07/16/25 at 1115, Routine 1116 (Given - Provid er: Radha Trujillo RN) diphenhydrAMINE (BENADRYL) injection 25 mg (COMPLETED) 25 mg, IV, ONE TIME ONLY, 1 dose, On 07/16/25 at 1115, Routine 1125 (Given - Provid er: Radha Trujillo RN) famotidine PF (PEPCID) 20 mg/2 mL injection 20 mg (COMPLETED) 20 mg, IV, ONE TIME ONLY, 1 dose, On 07/16/25 at 1115, Routine 1123 (Given - Provid er: Radha Trujillo RN) haloperidol lactate (HALDOL) injection 2.5 mg (COMPLETED) 2.5 mg, IM, ONE TIME ONLY, 1 dose, On 07/16/25 at 1300, Routine 1303 (Given - Provid er: Radha Trujillo RN) ondansetron (ZOFRAN) 4 mg/2 mL injection 4 mg (COMPLETED) 4 mg, IV, ONE TIME ONLY, 1 dose, On 07/16/25 at 1145, Routine 1140 (Given - Provid er: Radha Trujillo RN) pantoprazole (PROTONIX) 40 mg in sodium chloride 0.9% 10 mL injection (COMPLETED) 40 mg, IV, ONE TIME ONLY, 1 dose, On 07/16/25 at 1145, Routine, For vial+diluent: 10 mL NS is needed to reconstitute pantoprazole vial. For doses less than 40 mg Epic may default less than 10 mL NS. Pharmacist to change NS dispense amount to 10 mL., Indication: Stress ulcer prophylaxis 1142 (Given - Provid er: Radha Trujillo RN) prochlorperazine (COMPAZINE) injection 5 mg (COMPLETED) 5 mg, IV, ONE TIME ONLY, 1 dose, On 07/16/25 at 1115, Routine 1119 (Given - Provid er: Radha Trujillo RN) sodium chloride 0.9 % bolus solution 1,000 mL (COMPLETED) 1,000 mL, IV, ONE TIME ONLY, 1 dose, On 07/16/25 at 1115, at 2,000 mL/hr, Administer over 30 Minutes, Routine 1117 (New Bag - Prov ider: Radha Trujillo RN)1147 (Stopped - Provider: Radha Trujillo RN) sodium chloride flush injection 10 mL 10 mL, IV, EVERY 12 HOURS (BlD), First dose on 07/16/25 at 1115, Until Discontinued, Routine 1126 (Given - Provid er: Radha Trujillo RN) sodium chloride flush injection 10 mL 10 mL, IV, SEE ADMIN INSTRUCTIONS, Starting on 07/16/25 at 1111, Until 07/16/25 at 1546, Routine 1126 (Given - Provid er: Radha Trujillo RN) documented in this encounter Care Teams Gas Tester Relationship Specialty Start Date End Date Starla Campbell DO [address] [place] [id number] PCP - General Family Practice 01/22/24 documented as of this encounter
--- OUTSIDE RECORDS SUMMARY | 2025-07-16 15:46 | XMS_ITS | Encounter Summary ---
Author Organization [facility] Address 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 No 2024 Housing Stability Answer [...] on file Legal Sex Male 12:21 AM [employer] Gender Identity Not on file Sexual Orientation Not on file documented as of this encounter Medications at Time of Discharge [...] Tablet 07/16/2025 documented as of this encounter Plan of Treatment Not on file documented as of this encounter Visit Diagnoses Not on filedocumented in this encounter Care Teams Program Coordinator Relationship Specialty Start Date End Date Starla Campbell DO [address] [place] [phone] PCP - General Family Practice 01/22/24 documented as of this encounter
--- OUTSIDE RECORDS SUMMARY | 2025-07-17 21:57 | XMS_ITS | Encounter Summary ---
Author Organization [facility] Address [address] [place] [address] Care Team Providers Care Wet Process Miller Head Name Role Phone Starla Campbell DO Primary Care Provider [phone] Reason for Visit * Reason Comments Abdominal Pain Generalized Body Aches * Auth/Cert (Routine) Specialty Diagnoses / Procedures Referred By Michaela t Referred To Contact Internal Medicine Kojo Urias MD [address] [place] [phone] Phone: tel: fax: [facility] [address] [facility] [address] [place] [address] Phone: tel: fax: Referral ID Status Reason Start Date Expiration Date Visits Re quested Visits Authorized [id number] 1 1 Encounter Details Date Type Department Care Team (Latest Contact Info) Description 07/17/2025 9:57 PM CDT - 07/18/2025 11:09 AM CDT Hospital Encounter [facility] [address] [facility] [address] [place] [address] Kojo Urias MD [address] [place] [phone] Acute generalized body pain Discharge Disposition: Home or Self Care Social [...] you can t pay for food? No 07/18/2025 Transportation Needs Answer Date Record ed Have you gone without health care because you didn t have a way to get there? 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 No 2024 Housing Stability Answer Date Recorded Do you worry you won t have a steady place to sleep or struggle to pay rent or mortgage? No 07/18/2025 Utility Needs Answer Date Recorded Do you have difficulty payin g for utility costs (electric, water or gas bills)? No 07/18/2025 Medication Needs Answer Date Recorded Have you skipped taking medi cation due to cost or worry you can t afford new medications? No 07/18/2025 Feeling Safe Answer Date Recorded Are you in a relationship wi th someone who hurts you emotionally and/or physically? No 07/18/2025 Food Insecurity Answer Date Recorded Patient needs follow up regardin 07/18/2025 Transportation Needs Answer Date Record ed Patient needs follow up regardin 07/18/2025 Utility Needs Answer Date Recorded Patient needs follow up regardin 07/18/2025 Education Answer Date Recorded What is the highest level of school you have completed or the highest degree you have received? 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 Gender Identity Not on file Sexual Orientation Not on file documented as of this encounter Last Filed Vital Signs Vital Sign Reading Time Taken Comments Blood Pressure 117/60 07/18/2025 7:32 AM CDT Pulse 88 07/18/2025 7:32 AM CDT Temperature 36.7 C (98.1 F) 07/18/2025 7:32 AM CDT Respiratory Rate 16 07/18/2025 7:32 AM CDT Oxygen Saturation 98% 07/18/2025 7:32 AM CDT Inhaled Oxygen Concentration - - Weight 62.6 kg (138 lb) 07/18/2025 3:44 AM CDT Height 177.8 cm (5' 10 ) 07/18/2025 3:44 AM CDT Body Mass Index 19.8 07/18/2025 3:44 AM CDT documented in this encounter Discharge Summaries * Lila Harris FNP - 07/18/2025 9:02 AM CDT Physician Discharge Summary Patient: Pranay Galvez / 19 y.o. / male : 2005 Admit date: 07/17/2025 Indication for Admission: This is a 19-year-old male presenting with generalized body pain. The patient reports experiencing generalized body pain from head to toe that began two days ago. The pain did not come on suddenly. He also reports vomiting that started around the same time, but he is unsure of the cause. The patient describes the pain as discomfort and mentions a headache and abdominal pain that is diffuse. He has taken Tylenol for relief. He reports no changes in bowel or bladder habits, although he suspects constipation as his last bowel movement was yesterday and it was hard. He does not experience any burning sensation during urination. The patient describes a sensationof being in a tunnel, which he finds difficult to articulate. He notes that his face appears asymmetrical at times. Admitting Diagnoses:acute generalized body pain Attending Physician: Kojo Urias* Consults: hospitalist. Emergency Department Diagnoses: ICD-10-CM ICD-9-CM 1. Generalized abdominal discomfort R10.84 789.07 Problem List: Active Hospital Problems Diagnosis Acute generalized body pain Resolved Hospital Problems Diagnosis Date Resolved Constipation 07/18/2025 Treatments: IV hydration. Hospital Course: ED Course: -Patient initially given Haldol 2.5 mg and Benadryl after reporting it was helpful yesterday duringhis ER visit., No improvement -Patient given ketorolac for pain, no improvement -Patient given Xanax after suspicion of possible alcohol trauma. No improvement. -Patient was also unable to sit still during initial CT scan. -Patient given morphine 4 mg. At this time heart rate improved patient settled became comfortable and is able to rest the rest of the day. -Patient was able to remain still through second attempt at CT scan. -Marginally elevated WBCs - Labs otherwise generally reassuring. - Of note lactic elevated at 2.1, yesterday was 3.7. During ER stay patient received 2 L of fluid. Final Assessment: Unknown cause of symptoms, infectious versus substance use. Discussed case with patient who would like to be admitted for observation. Admitted for observation. Clinical Impression: - Musculoskeletal pain - Gastrointestinal issues - Constipation Disposition: - Admission: Admitted for observation. 07/18/2025 Patient placed in observation. He is refusing a urine drug screen and reports he is feeling better today. Patient reports living being [facility] and has his mom that is available to pick him up at timeof DC. Patient denies current employment and use of mariajuana in the last 3 days. Patient is stable for DC at this time. Admission Condition: stable. Discharge date: 07/18/2025 Discharging Physician: JASBIR Torres Discharge Exam: Physical Exam Constitutional: Appearance: He is well-developed. HENT: Head: Normocephalic. Mouth/Throat: Mouth: Mucous membranes are moist. Eyes: Pupils: Pupils are equal, round, and reactive to light. Cardiovascular: Rate and Rhythm: Normal rate and regular rhythm. Pulmonary: Effort: Pulmonary effort is normal. Breath sounds: Normal breath sounds. Abdominal: General: Abdomen is flat. Bowel sounds are normal. Tenderness: There is no abdominal tenderness. Skin: General: Skin is warm. Neurological: General: No focal deficit present. Mental Status: He is alert. Psychiatric: Mood and Affect: Mood normal. Discharge Condition: improving. Discharge Diagnoses: generalized body aches Disposition: home. MEDICATIONS Prior to admission: Medications Prior to Admission Medication Sig Dispense Refill Last Dose/Taking prochlorperazine maleate (COMPAZINE) 5 mg tablet Take 1 Tablet (5 mg) by mouth every 8 hours as needed for Nausea/Emesis. 9 Tablet 0 EPINEPHrine (EPIPEN) 0.3 mg/0.3 mL Auto-Injector Inject 0.3 mL (0.3 mg) by intramuscular injection 1 time daily as needed for Anaphylaxis. 2 Each 3 Discharge medications and new prescriptions: Medication List CONTINUE taking these medications EPINEPHrine 0.3 mg/0.3 mL Auto-Injector Commonly known as: EPIPEN Inject 0.3 mL (0.3 mg) by intramuscular injection 1 time daily as needed for Anaphylaxis. Signed by: Nurse Practitioner Anabella Reynoso Quantity: 2 Each Refills: 3 STOP taking these medications prochlorperazine maleate 5 mg tablet Commonly known as: COMPAZINE Patient instructions: Activity: activity as tolerated. Diet: Regular Diet. Follow up if worsening or return of symptoms Follow-up with Starla Campbell, DO return if not improving. Signed: JASBIR Torres 07/18/2025, 9:03 AM Cosigned by Heath Castellano MD at 07/18/2025 12:27 PM CDT documented in this encounter Discharge Instructions * Discharge Instructions* Lila Harris FNP - 07/18/2025 9:02 AM CDT Continue on medication as directed for nausea from the ED. * Attachments The following attachments cannot be sent through Care Everywhere. * Acute Pain Management: General Info (Lithuanian) documented in this encounter Medications at Time of Discharge EPINEPHrine (EPIPEN) 0.3 mg/0.3 mL Auto-InjectorInd ications:Allergy to galactose-alpha- 1,3-galactose Inject 0.3 mL (0.3 mg) by intramuscular injection 1 time daily as needed for Anaphylaxis. 2 Each 3 11/28/2024 documented as of this encounter Progress Notes * Renetta Menjivar RN - 07/18/2025 10:57 AM CDT Pranay Galvez will be discharged via ambulatory to Home. Pranay Galvez is accompanied by family member(s) and will be transported via private vehicle. Lines removed Yes. Hospital equipment removed N/A. Discharge instructions and new medication teaching reviewed and copy provided to patient. Prescriptions given n/a. Home medications returned to patient/family N/A. Patient belongings and valuables given to patient/family Yes. Medical supplies sent with patient: n/a. All questions answered and patient/family verbalized understanding. * Marilu Ellington RN - 07/18/2025 9:12 AM CDT Multidisciplinary Care Team Rounds completed at bedside. Care needs assessed and Plan of Care discussed with patient. Patient's family updated as needed. Care Management Initial Assessment Initial Discharge Planning Assessment completed. Discussed Care Management's role and Discharge planning. Plan Discharge To: Home or Self Care Does the patient have family and/or a caregiver that is willing, able and available to assist if needed? Yes - Name/Relation:Keeley Mcdanieles/Mother Comments: NA Patient Discharge Planning Goal: Return Home Patient will potentially discharge to a SNF/NH? No Care Management visited with: patient via in person. Prior to admission, patient resides at: Apartment. Prior to admission, living arrangements: lives alone. Prior to admission, patient's functional level:independent; uses N/A for mobility; needs assistancewith iADLs: N/A Community Ambulator: yes Prior to admission, the patient has the following DME? N/A Services in the home/community: none Receives hemodialysis? No Emergency contact(s): Extended Emergency Contact Information Primary Emergency Contact: KEELEY GALVEZ Address: [address] [facility] Mobile Relation: Mother Secondary Emergency Contact: KONSTANTIN GALVEZ Mobile Relation: Father Prescription coverage: yes [facility] [place], [place] - [address] Insurance coverage verified: Payor: HOME STATE MEDICAID / Plan: HOME STATE HEALTH PLAN MEDICAID / Product Type: HMO / Secondary Insurance:N/A Medicaid Status: spend down Has VA Benefits: no Employment Status: employed PCP verified as: Starla Campbell, DO Patient has not had a stay at an acute care hospital in the last 30 days. Recent Falls?: Last Known Fall: No falls Plan for transportation at discharge: Keeley Galvez/Mother Care Management contact information provided. Care Management will continue to follow and assist asneeded. Clinical documentation reviewed. Comprehensive Discharge Planning Risk Assessment was completed. Documentation Related to CDPA score CDPA Documentation Ambulation: independent Transferring: independent Toileting: independent Bathing: independent Dressing: independent Eating: independent Communication: understands/communicates w/o difficulty Weight-Bearing Status: no weight-bearing restrictions Living Arrangements: Lives alone Total Score of 9 or below does not identify immediate needs for discharge. CDPA Risk Score Total Score: 3 3 Prior Living Status Criteria that do not apply: Self-reported walking limitation Disability Age Please place consult if needs for discharge are identified. Care Management will continue to follow for discharge planning. * Renetta Menjivar RN - 07/18/2025 6:50 AM CDT Bedside report with previous shift complete. Patient resting comfortably in bed. No needs voiced atthis time. * Austyn Baer Ud, MD - 07/18/2025 4:33 AM CDT Images from the original note were not included. [facility] HOSPITAL[facility] ADMISSION NOTE This patient is being seen on 07/18/2025 in [facility] using bidirectional synchronous audio and video communication. Upon establishment of audio-visual connection, the following two identifiers were used to confirm the patient's identity:Name and Date Of No visitors were present in the room for the duration of our conversation. Problem List: Principal Problem: Acute generalized body pain Active Problems: Constipation Assessment and Plan: 19-year-old male with history of anxiety disorder, depression, GERD, peptic ulcer disease, history of marijuana abuse, not currently on any medication came in with complaining of total body pain fromhead to toe which started after nonbilious nonbloody vomiting associated with generalized abdominalpain. Also complaining of constipation. CT abdomen showed no acute pathology lab work significant for lactic acidosis of 2.1 potassium 3.4 glucose 110 WBC 10.4 otherwise unremarkable. TSH normal lipase normal alcohol level less than 10, troponin x 1 negative, ESR normal CRP normal bicarb 21 ALT 113. Will admit for observation due to total body pain and gastrointestinal issues including nausea vomiting and abdominal pain and probable constipation. Total body pain unclear etiology Musculoskeletal generalized body pain Abdominal pain and nausea/vomiting Probable constipation reporting probable constipation with hard bowel movement Mild lactic acidosis Mild hypokalemia History of anxiety disorder/depression--per patient he is not taking any medication currently at home Admit to hospital service, clear liquid diet advance as tolerated, IV fluid normal saline 150 cc/h,check urine toxicology urinalysis, watch for possible substance withdrawal or intoxication althoughpatient denied and urine toxicology is currently pending, check CPK level, IV PPI trial, supportivesymptomatic treatment, further medical management depend on the clinical course and lab and test results, - Diet: DIET CLEAR LIQUID - DVT Prophylaxis: lovenox - Disposition: home once medically stable. - Code Status: was discussed with the patient; patient's code status is Full Code. __ Chief Complaint: Total body pain, nausea vomiting abdominal pain and probable constipation History of Present Illness: Pranay Galvez is a 19 y.o. male with past medical history as stated below including generalized anxiety disorder, GERD, and peptic ulcer disease, not on any medication currently he came in with generalized body pain and gastric symptom of nausea vomiting and abdominal pain and probable constipation. Patient is complaining of pain which started after vomiting from head to toe. Per report patient started having total body pain which started 2 days ago with gradual onset with associated of nausea and episode of vomiting which started around the same time. Per patient the patient is discomfort like an include diffuse abdominal pain and headache as well. Per patient he triedTylenol with no relief. Patient denies diarrhea but he suspect constipation is his last bowel movement was yesterday and it was hard per patient. Denies dysuria or urinary symptoms. Patient denies excessive alcohol use. Patient denies substance abuse. Patient denying nausea vomiting diarrhea dysuria hematuria hematochezia or black or tarry stool.Denies chest pain shortness of breath fevers chills rigors cough The patient also denies any headache, blurry vision, sore throat, trouble swallowing, trouble with speech, recent travel, sick contact, focal or generalized neurological symptoms, falls, injuries, rashes, contact with COVID 19 diagnosed patient,hematemesis, denies starting any new medication and denies any other concern or problem bedside as mentioned above ER course: ED Course: -Patient initially given Haldol 2.5 mg and Benadryl after reporting it was helpful yesterday duringhis ER visit., No improvement -Patient given ketorolac for pain, no improvement -Patient given Xanax after suspicion of possible alcohol trauma. No improvement. -Patient was also unable to sit still during initial CT scan. -Patient given morphine 4 mg. At this time heart rate improved patient settled became comfortable and is able to rest the rest of the day. -Patient was able to remain still through second attempt at CT scan. -Marginally elevated WBCs - Labs otherwise generally reassuring. - Of note lactic elevated at 2.1, yesterday was 3.7. During ER stay patient received 2 L of fluid. Final Assessment: Unknown cause of symptoms, infectious versus substance use. Discussed case with patient who would like to be admitted for observation. Admitted for observation ED exam Constitutional: General: He is not in acute distress. Anxious looking Appearance: He is well-developed and normal weight. He is diaphoretic. He is not ill-appearing or toxic-appearing. Comments: Patient reports tenderness palpation head to toe. Cardiovascular: Rate and Rhythm: Regular rhythm. Tachycardia present. Abdominal: General: Abdomen is flat. Bowel sounds are normal. There is no distension or abdominal bruit. Thereare no signs of injury. Tenderness: There is generalized abdominal tenderness. There is guarding. There is no right CVA tenderness, left CVA tenderness or rebound. Negative signs include Allan's sign, Rovsing's sign and McBurney's sign ECG personally reviewed: Normal sinus rhythm heart rate 77. No acute ischemic changes Other imaging personally reviewed: CT chest abdomen and pelvis no acute pathology Old medical records reviewed as below Charlotte Reynoso FNP Nurse Practitioner clinic note Encounter Date: 03/07/2025 The patient is a 19-year-old male who presents to the clinic for a hospital follow-up. He experienced a distressing event last Thursday, which led to an emotional outburst. This incident resulted in his admission to the psychiatric unit at [facility] in [place] for a duration of 96 hours plus 2 days. During this period, he declined all medication due to a lack of trust. He reports no current suicidal or homicidal ideations. He has been self-medicating with marijuana but ceased this practice approximately 10 days ago. He perceives an exacerbation in both his anxiety and depression, with the latter being more pronounced. He attributes this to a decrease in serotonin production following the cessation of marijuana use. He has previously tried various antidepressants, including amitriptyline, which was effective but induced fatigue. Zoloft also caused fatigue and chest pain, leading him to discontinue its use. He has a history of smoking for 9 years, which he believes initially alleviated his symptoms but ultimately worsened them. He does not consider his depression to be situational. He has previously found buspirone beneficial when used in conjunction with Zoloft. He is open to counseling and has an appointment scheduled with a counselor. Assessment & Plan 1. Anxiety. - Increased anxiety reported, particularly after discontinuing marijuana use 9- 10 days ago. - Hydroxyzine prescribed to be taken at night to aid sleep and up to two additional times during the day as needed. - Referral to [facility] for counseling sessions initiated. - Advised to monitor for any side effects and report back in a couple of weeks. 2. Depression. - Worsening depression reported. - Effexor prescribed at the lowest dose to manage depression. - Advised to monitor for any side effects and report back in a couple of weeks. - Dosage may be adjusted based on response if Effexor is tolerated well. Past Medical History: Diagnosis Date Generalized anxiety disorder GERD (gastroesophageal reflux disease) Patient denies relevant medical history Peptic ulcer Past Surgical History: Procedure Laterality Date PT DENIES RELEVANT SURGICAL HISTORY Family History Problem Relation Name Age of Onset Diabetes Paternal Grandfather Colon Cancer Neg Hx Breast Cancer Neg Hx Healthy Maternal Grandmother Other Maternal Grandfather arthritis, suicide Respiratory Disease Paternal Grandmother Healthy Mother Healthy Father Social History Socioeconomic History Marital status: Single Spouse name: Not on file Number of children: 0 Years of education: 12 Highest education level: High school graduate Occupational History Not on file Tobacco Use Smoking status: Never Passive exposure: Never Smokeless tobacco: Never Vaping Use Vaping status: Every Day Substances: Nicotine, Flavoring Devices: Disposable, Pre-filled or refillable cartridge, Refillable tank, Pre- filled pod Substance and Sexual Activity Alcohol use: No Drug use: Yes Frequency: 4.0 times per week Types: Marijuana Comment: pt reports every other day Sexual activity: Not Currently Other Topics Concern Not on file Social History Narrative Not on file Health-Related Social Needs Food Insecurity: Not on file (07/18/2025) Transportation Needs: No Transportation Needs (07/18/2025) Transportation Needs Patient needs follow up regarding:: 1 Domestic Concerns: Not At Risk (07/18/2025) Feeling Safe Patient has indicated abuse: : No Housing Stability: Low Risk (07/18/2025) Housing Stability Struggle to pay rent or mortgage: No Allergies: Allergies Allergen Reactions Iodinated Contrast Media Anaphylaxis Sesame Seed Unknown Shrimp Other (See Comments) Not sure Alpha-Gal (Gdsnhreoa-Eflld-1,3-Galactose) Other (See Comments) and Abdominal Pain vomiting Milk Diarrhea Home Medication List: Prior to Admission Medications Prescriptions Last Dose Informant Patient Reported? Taking? EPINEPHrine (EPIPEN) 0.3 mg/0.3 mL Auto-Injector No No Sig: Inject 0.3 mL (0.3 mg) by intramuscular injection 1 time daily as needed for Anaphylaxis. prochlorperazine maleate (COMPAZINE) 5 mg tablet No No Sig: Take 1 Tablet (5 mg) by mouth every 8 hours as needed for Nausea/Emesis. Facility-Administered Medications: None This medication reconciliation was completed to fullest extent possible in partnership with the patient, who is a reliable historian. Pertinent Review of Systems: 14 pt ROS negative except as noted in HPI. Physical Exam: Vitals: 07/18/25 0300 07/18/25 0342 07/18/25 0343 07/18/25 0344 BP: 111/66 126/75 Pulse: 77 94 Resp: 24 16 Temp: 97.8 ??F (36.6 ??C) TempSrc: Temporal SpO2: 96% 96% Weight: 61.1 kg (134 lb 12.8 oz) 62.6 kg (138 lb) Height: 5' 10 (1.778 m) Body mass index is 19.8 kg/m??. Vitals reviewed. A complete physical exam will be found in the H&P which will be written by my in-house partner. Labs/Imaging/Cardiac Studies: Results for orders placed or performed during the hospital encounter of 07/17/25 (from the past 24 hours) CBC WITH DIFFERENTIAL Result Value Ref Range WBC 10.4 (H) 4.2 - 9.1 K/uL RBC 4.64 4.63 - 6.08 M/uL HEMOGLOBIN 14.7 13.7 - 17.5 g/dL HEMATOCRIT 39.6 (L) 40.1 - 51.0 % MCV 85.3 79.0 - 92.2 fL MCH 31.7 25.7 - 32.2 pg MCHC 37.1 (H) 32.3 - 36.5 g/dL RDW 12.2 11.0 - 14.5 % RDW-STDEV 37.7 36.9 - 56.9 fL PLATELETS 255 130 - 400 K/uL MPV 11.2 10.0 - 14.8 fL NEUTROPHILS 58 34 - 68 % LYMPHOCYTES 34 22 - 53 % MONOCYTES 7 5 - 12 % EOSINOPHILS 1 1 - 7 % BASOPHILS 1 0 - 1 % IMMATURE GRANULOCYTES 0 % NEUTROPHIL ABSOLUTE 6.01 (H) 1.78 - 5.38 K/uL LYMPHOCYTE ABSOLUTE 3.49 (H) 1.20 - 3.40 K/uL MONOCYTE ABSOLUTE 0.75 0.30 - 0.82 K/uL EOSINOPHIL ABSOLUTE 0.05 0.04 - 0.54 K/uL BASOPHILS ABSOLUTE 0.05 0.01 - 0.08 K/uL IMMATURE GRANULOCYTES ABSOLUTE 0.02 K/uL COMPREHENSIVE METABOLIC PANEL Result Value Ref Range SODIUM 139 136 - 145 mmol/L POTASSIUM 3.4 (L) 3.5 - 5.1 mmol/L CHLORIDE 99 98 - 107 mmol/L CO2 21 (L) 22 - 29 mmol/L CALCIUM 10.0 8.6 - 10.0 mg/dL BUN 14 6 - 20 mg/dL CREATININE 0.96 0.67 - 1.17 mg/dL GLUCOSE 110 (H) 74 - 99 mg/dL TOTAL PROTEIN 7.9 6.6 - 8.7 g/dL ALBUMIN 4.9 3.5 - 5.2 g/dL BILIRUBIN TOTAL 0.7 0.0 - 1.2 mg/dL ALKALINE PHOSPHATASE 76 40 - 129 U/L AST 45 0 - 50 U/L ALT 113 (H) 0 - 50 U/L GFR >60 >=60 mL/min/1.73 sq meter ANION GAP 19 5 - 20 mmol/L LIPASE Result Value Ref Range LIPASE 21 13 - 60 U/L TSH Result Value Ref Range TSH 1.67 0.27 - 4.20 uIU/mL LACTIC ACID Result Value Ref Range LACTIC ACID 2.1 (H) <=2.0 mmol/L ETHANOL LEVEL Result Value Ref Range ETHANOL <10.10 <10.10 mg/dL ETHANOL % <0.01 %w/v TROPONIN BASELINE, 5TH GEN Result Value Ref Range TROPONIN T, BASELINE 5TH GEN <6 <=15 ng/L SEDIMENTATION RATE Result Value Ref Range ESR (SEDIMENTATION RATE) 6 0 - 15 mm/Hr C-REACTIVE PROTEIN Result Value Ref Range CRP <3.0 <5.0 mg/L Handoff provided to hospitalist at [facility] This note was done using [employer] dictation software. The above note may or may not have been proofread for accuracy. Austyn Baer MD 07/18/25 4:33 AM Adult Hospitalist [facility] [employer] To reach the vHospitalist team 24 hours a day, please place an e-Ticket through the [employer] tab in [employer] or call us directly at [phone]. * Leon Serrano MD - 07/18/2025 3:13 AM CDT [facility] HOSPITALIST NOTE 07/18/25 3:13 AM Contacted for: Unseen Virtual/Bridge Admission Vitals: 07/18/25 0130 07/18/25 0200 07/18/25 0230 07/18/25 0300 Temp: Pulse: 73 80 77 77 Heart Rate: 73 bpm 80 bpm 76 bpm 78 bpm BP: 122/69 111/60 114/78 111/66 Mean Arterial Pressure: 84 MM HG 74 MM HG 89 MM HG 78 MM HG Resp: 10 13 13 24 SpO2: 97% 97% 96% 96% Intervention/Follow up/Discussion: Admission is pending and will be completed as soon as is possible. Preliminary orders have been provided, please see active and signed/held orders and release orders when able. Admission to follow. Please don't hesitate to contact our vHospitalist team again via e-Ticket should further needs arise in the interim. Leon Serrano MD To reach the vHospitalist team 24 hours a day, please place an e-Ticket through the [employer] tab in [employer] or call us directly at [phone]. documented in this encounter ED Notes * Kenyatta Nichole RCP - 07/18/2025 3:20 AM CDT EKG completed. Results given to and scanned into [employer]. * Kojo Urias MD - 07/17/2025 9:46 PM CDT 07/17/25 10:22 PM HISTORY OF PRESENT ILLNESS History of Present Illness This is a 19-year-old male presenting with generalized body pain. The patient reports experiencing generalized body pain from head to toe that began two days ago. The pain did not come on suddenly. He also reports vomiting that started around the same time, but he is unsure of the cause. The patient describes the pain as discomfort and mentions a headache and abdominal pain that is diffuse. He has taken Tylenol for relief. He reports no changes in bowel or bladder habits, although he suspects constipation as his last bowel movement was yesterday and it was hard. He does not experience any burning sensation during urination. The patient describes a sensationof being in a tunnel, which he finds difficult to articulate. He notes that his face appears asymmetrical at times. PAST MEDICAL HISTORY REVIEWED MEDICAL: Patient has a past medical history of Generalized anxiety disorder, GERD (gastroesophageal reflux disease), Patient denies relevant medical history, and Peptic ulcer. SURGICAL: Patient has a past surgical history that includes pt denies relevant surgical history. ALLERGIES Iodinated contrast media; Sesame seed; Shrimp; Alpha-gal (jofrucbvx-mclwk-5,3-galactose); and Milk PHYSICAL EXAM INITIAL VS BP: (!) 160/110 (07/17/252202), Heart Rate: (!) 137 bpm (07/17/252202), Resp: 19 (07/17/252202),Pulse: (!) 137 (07/17/252202), Temp: 97.6 ??F (36.4 ??C) (07/17/252202), Temp src: Oral (), SpO2: 97 % (07/17/252202), Height: 5' 10 (177.8 cm) (07/17/252202), Weight: 62.1 kg (137 lb) (07/17/252202), BMI (Calculated): 19.64 (07/17/252202) No LMP for male patient. Blood pressure 111/60, pulse 80, temperature 97.6 ??F (36.4 ??C), temperature source Oral, resp. rate 13, height 5' 10 (1.778 m), weight 62.1 kg (137 lb), SpO2 97%. Physical Exam Vitals and nursing note reviewed. Constitutional: General: He is not in acute distress. Appearance: He is well-developed and normal weight. He is diaphoretic. He is not ill-appearing or toxic-appearing. Comments: Patient reports tenderness palpation head to toe. HENT: Head: Normocephalic and atraumatic. Eyes: General: No scleral icterus. Extraocular Movements: Extraocular movements intact. Pupils: Pupils are equal, round, and reactive to light. Cardiovascular: Rate and Rhythm: Regular rhythm. Tachycardia present. Heart sounds: Normal heart sounds. No murmur heard. No friction rub. No gallop. Pulmonary: Effort: Pulmonary effort is normal. Breath sounds: Normal breath sounds. No wheezing, rhonchi or rales. Abdominal: General: Abdomen is flat. Bowel sounds are normal. There is no distension or abdominal bruit. Thereare no signs of injury. Tenderness: There is generalized abdominal tenderness. There is guarding. There is no right CVA tenderness, left CVA tenderness or rebound. Negative signs include Allan's sign, Rovsing's sign and McBurney's sign. Skin: General: Skin is warm. Capillary Refill: Capillary refill takes less than 2 seconds. Coloration: Skin is not jaundiced or pale. Findings: No rash. Neurological: General: No focal deficit present. Mental Status: He is alert and oriented to person, place, and time. Cranial Nerves: No cranial nerve deficit. Motor: No weakness. Psychiatric: Mood and Affect: Mood is anxious. Behavior: Behavior normal. Physical Exam DIAGNOSTICS LAB: CBC WITH DIFFERENTIAL - Abnormal Result Value WBC 10.4 (*) RBC 4.64 HEMOGLOBIN 14.7 HEMATOCRIT 39.6 (*) MCV 85.3 MCH 31.7 MCHC 37.1 (*) RDW 12.2 RDW-STDEV 37.7 PLATELETS 255 MPV 11.2 NEUTROPHILS 58 LYMPHOCYTES 34 MONOCYTES 7 EOSINOPHILS 1 BASOPHILS 1 IMMATURE GRANULOCYTES 0 NEUTROPHIL ABSOLUTE 6.01 (*) LYMPHOCYTE ABSOLUTE 3.49 (*) MONOCYTE ABSOLUTE 0.75 EOSINOPHIL ABSOLUTE 0.05 BASOPHILS ABSOLUTE 0.05 IMMATURE GRANULOCYTES ABSOLUTE 0.02 COMPREHENSIVE METABOLIC PANEL - Abnormal SODIUM 139 POTASSIUM 3.4 (*) CHLORIDE 99 CO2 21 (*) CALCIUM 10.0 BUN 14 CREATININE 0.96 GLUCOSE 110 (*) TOTAL PROTEIN 7.9 ALBUMIN 4.9 BILIRUBIN TOTAL 0.7 ALKALINE PHOSPHATASE 76 AST 45 ALT 113 (*) GFR >60 ANION GAP 19 LACTIC ACID - Abnormal LACTIC ACID 2.1 (*) LIPASE - Normal LIPASE 21 TSH - Normal TSH 1.67 URINALYSIS WITH REFLEX MICROSCOPIC DRUG SCREEN, URINE RADIOLOGY: CT CHEST ABDOMEN PELVIS WO CONT Radiologist Impression IMPRESSION: 1. No acute process MACRO: None EKG: Results Results independently interpreted by Kojo Urias MD PROCEDURES Procedures MEDICAL DECISION MAKING AND PLAN OF CARE Assessment & Plan Initial Assessment: 19-year-old male presenting with severe pain from head to toe, which started after vomiting. Reports abdominal pain and probable constipation. No fever, no burning during urination. Patient was unable to sit still, often moving from lying to sitting back to lying position. Holding body in rigid positions, sweating profusely, tachycardic between 100 and 150, uncomfortable appearing. Differential Diagnosis: - Musculoskeletal pain: Due to severe pain from head to toe. Plan: Admit for observation. - Gastrointestinal infectious versus: reported nausea and vomiting - pancreatitis - Constipation: Reports probable constipation with hard bowel movement. Plan: Monitor bowel movements. - Substance withdrawal: patient denies alcohol use or other substance use - Substance intoxication: Patient denies substance use ED Course: -Patient initially given Haldol 2.5 mg and Benadryl after reporting it was helpful yesterday duringhis ER visit., No improvement -Patient given ketorolac for pain, no improvement -Patient given Xanax after suspicion of possible alcohol trauma. No improvement. -Patient was also unable to sit still during initial CT scan. -Patient given morphine 4 mg. At this time heart rate improved patient settled became comfortable and is able to rest the rest of the day. -Patient was able to remain still through second attempt at CT scan. -Marginally elevated WBCs - Labs otherwise generally reassuring. - Of note lactic elevated at 2.1, yesterday was 3.7. During ER stay patient received 2 L of fluid. Final Assessment: Unknown cause of symptoms, infectious versus substance use. Discussed case with patient who would like to be admitted for observation. Admitted for observation. Clinical Impression: - Musculoskeletal pain - Gastrointestinal issues - Constipation Disposition: - Admission: Admitted for observation. Medical Decision Making Amount and/or Complexity of Data Reviewed Labs: ordered. Radiology: ordered. Risk Prescription drug management. Decision regarding hospitalization. Clinical Scoring & Consults Medications Administered During the ED Stay from 07/17/2025 2147 to 07/18/2025 0307 Date/Time Order Dose Route Action 07/17/2025 2257 CDT sodium chloride 0.9 % bolus solution 1,000 mL 0 mL IV Stopped 07/17/2025 2227 CDT sodium chloride 0.9 % bolus solution 1,000 mL 1,000 mL IV New Bag 07/17/2025 2231 CDT haloperidol lactate (HALDOL) injection 2.5 mg 2.5 mg IV Given 07/17/2025 2228 CDT diphenhydrAMINE (BENADRYL) injection 25 mg 25 mg IV Given 07/17/2025 2306 CDT ALPRAZolam (XANAX) disintegrating tablet 1 mg 1 mg Oral Given 07/17/2025 2303 CDT ketorolac (TORADOL) injection 10 mg 10 mg IV Given 07/17/2025 2345 CDT sodium chloride 0.9 % bolus solution 1,000 mL 0 mL IV Stopped 07/17/2025 2315 CDT sodium chloride 0.9 % bolus solution 1,000 mL 1,000 mL IV New Bag 07/17/2025 2346 CDT morphine 4 mg/mL injection 4 mg 4 mg IV Given . New Prescriptions for this Encounter LAST VS BP: 111/60 (07/18/25199), Heart Rate: 80 bpm (07/18/25199), Resp: 13 (07/18/25199), Pulse: 80(07/18/25199), Temp: 97.6 ??F (36.4 ??C) (07/17/252202), Temp src: Oral (07/17/252202), SpO2: 97 % (07/18/25199) CLINICAL IMPRESSION Diagnosis Diagnosis Comment Added By Time Added Generalized abdominal discomfort [R10.84] Kojo Urias MD 07/18/2025 2:51 AM DISPOSITION, EDUCATION AND MEDICATION RECONCILIATION Medications reconciled. See after visit summary for patient education on discharged patients. ED Disposition ED Disposition Admit Condition Stable User Kojo Urias MD Date/Time ThuJul 18, 2025 2:51 AM Comment -- Diagnosis Diagnosis Comment Added By Time Added Generalized abdominal discomfort [R10.84] Kojo Urias MD 07/18/2025 2:51 AM documented in this encounter Miscellaneous Notes * Care Plan - Jessica Triana RN - 07/18/2025 5:08 AM CDT Shift Summary Pain decreased from severe and constant to no pain after administration of multiple medication modalities and non-pharmacologic interventions. Nausea continued, but supportive interventions were implemented to address gastrointestinal symptoms. Vital signs stabilized over the course of the shift, with improvements in blood pressure and heart rate. Plan: Orders to collect urine sample. Pt expressed that he does not feel the need to urinate at this time and he just wants to sleep. No documented void since admission. Vitals: 07/18/25 0343 BP: 126/75 Pulse: 94 Resp: 16 Temp: 97.8 ??F (36.6 ??C) SpO2: 96% * Gen AI ED Handoff - GENERATIVE AI HANDOFF NOTE - 07/18/2025 3:35 AM CDT SITUATION: Patient ( ) is a 19-year-old male who has been in the ER for 5 hours. He came to the ER due to abdominal pain generalized body aches. The patient's most recent care team on record included: Daily Manuel. BACKGROUND: This patient has allergies to Iodinated Contrast Media, Sesame Seed, Shrimp, Alpha-gal (fyvhwxktk-fsntm-5,3-galactose), Milk. ASSESSMENT: Patient's most recent vitals recorded in flowsheets were as follows: BP: 114/78 T: 97.5 F RR: 13 SPO2: 96% HR: 76 WT: 137.0 LBS BMI: 19.66 Most recent Glucose Value: 110. Completed: 2025-07-17 22:51. Lines most recently placed include: angiocath at 2025-07-17 22:16. Last recorded oxygen source was room air. Prev 45 Day Discharges: 3. Readmission detail: 2025-07-16 EMERGENCY Nausea and vomiting, unspecified vomiting type;2025-06-28 EMERGENCY Laceration of right middle finger without foreign body without damage to nail, initial encounter. The patient presents with generalized body pain, vomiting, and probable constipation. He reports a sensation of being in a tunnel and facial asymmetry at times. The patient has a history of generalized anxiety disorder, GERD, and peptic ulcer. He is diaphoretic, tachycardic, and holds his body in rigid positions. The patient has allergies to iodinated contrast media, sesame seed, shrimp, alpha-gal, and milk. Lab results show marginally elevated WBCs, elevated lactic acid, low potassium, and elevated ALT. RECOMMENDATION: Admit the patient for observation. Monitor bowel movements due to probable constipation. Continue to manage pain and anxiety. Administer fluids as needed, as the patient received 2 L of fluid during the ER stay. Consider further evaluation for gastrointestinal issues and musculoskeletal pain. Monitor for any signs of substance withdrawal or intoxication, despite the patient's denial of substance use. Ensure allergy precautions are in place. Continue to monitor vital signs and provide supportive care as needed. *This summary was created by [employer]. The responses are meant to enhance, not replace normal workflow. Please contact the ED nurse for any additional information.* documented in this encounter Plan of Treatment Not on file documented as of this encounter Procedures Procedure Name Priority Date/Time Associated Diagnosis Comments DRUG SCREEN, URINE Routine 07/18/2025 10 :10 AM CDT URINALYSIS W/REFLEX MICROSCOPIC Routine 07/18/2025 10:10 AM CDT TROPONIN 2 HR, 5TH GEN Timed Study 07/18/2025 6:35 AM CDT LACTIC ACID Stat 07/18/2025 6:35 AM CDT CBC WITH DIFFERENTIAL Routine 07/18/2025 6:35 AM CDT MAGNESIUM LEVEL Routine 07/18/2025 6:35 AM CDT BASIC METABOLIC PANEL Routine 07/18/2025 6:[address] CHEST ABDOMEN PELVIS WO CONT Stat 07/18/2025 12:10 AM CDT TROPONIN BASELINE, 5TH GEN Stat 07/17/2025 10:14 PM CDT LACTIC ACID Stat 07/17/2025 10:14 PM CDT CBC WITH DIFFERENTIAL Stat 07/17/2025 10:14 PM CDT SEDIMENTATION RATE Stat 07/17/2025 10 :14 PM CDT C-REACTIVE PROTEIN Stat 07/17/2025 10 :14 PM CDT TSH Stat 07/17/2025 10:14 PM CDT LIPASE Stat 07/17/2025 10:14 PM CDT CK Routine 07/17/2025 10:14 PM CDT ETHANOL LEVEL Stat 07/17/2025 10:14 PM CDT COMPREHENSIVE METABOLIC PANEL Stat 07/17/2025 10:14 PM CDT documented in this encounter Results * (ABNORMAL) URINALYSIS WITH REFLEX MICROSCOPIC (07/18/2025 10:10 AM CDT) COLOR UA Yellow Pale to Dark Yellow 07/18/2025 10:25 AM CDT [facility] CLARITY UA Clear Clear 07/18/2025 10:25 AM CDT [facility] SPECIFIC GRAVITY UA 1.025 1.003 - 1.035 07/18/2025 10:25 AM T [facility] PH UA 6.0 5.0 - 8.0 07/18/2025 10:25 AM CDT [facility] LEUKOCYTE ESTERASE UA Negative Negative 07/18/2025 10:25 AM CDT [facility] NITRITE UA Negative Negative 07/18/2025 10:25 AM T [facility] PROTEIN UA Negative Negative 07/18/2025 10:25 AM T [facility] GLUCOSE UA Negative Negative 07/18/2025 10:25 AM T [facility] KETONES UA 3+(A) Negative 07/18/2025 10:25 AM CDT [facility] UROBILINOGEN UA 1.0 <2.0 mg/dL 10:25 AM T [facility] BILIRUBIN UA 1+(A) Negative 07/18/2025 10:25 AM CDT [facility] BLOOD UA Negative Negative 07/18/2025 10:25 AM [facility] Urine URINE SPECIMEN OBTAINED BY CLEAN CATCH PROCEDURE / Unknown Collection / Unknown 07/18/2025 10:10 AM CDT 07/18/2025 10:21 AM CDT us Heath Castellano MD URINE ORDERABLES Final Result [facility] CLIA # [id number] [address] [place] [id number] * (ABNORMAL) DRUG SCREEN, URINE (07/18/2025 10:10 AM CDT) Pathologist [facility] CANNABINOIDS QUAL, URINE Presumptive Positive(A) Negative 07/18/2025 10:34 AM CDT [facility] PCP QUAL, URINE Negative Negative 10:34 AM CDT [facility] COCAINE QUAL URINE Negative Negative 2024 10:34 AM CDT [facility] METHAMPHETAMINE QUAL, URINE Negative Negative 07/18/2025 10:34 AM CDT [facility] OPIATE QUAL, URINE Presumptive Positive(A) Negative 07/18/2025 10:34 AM CDT [facility] AMPHETAMINE QUAL, URINE Negative Negative 07/18/2025 10:34 AM CDT [facility] BENZODIAZEPINE QUAL, URINE Presumptive Positive(A) Negative 07/18/2025 10:34 AM CDT [facility] TRICYCLICS QUAL, URINE Negative Negative 07/18/2025 10:34 AM CDT [facility] METHADONE QUAL, URINE Negative Negative 07/18/2025 10:34 AM CDT [facility] BARBITURATE QUAL, URINE Negative Negative 07/18/2025 10:34 AM CDT [facility] OXYCODONE QUAL, URINE Negative Negative 07/18/2025 10:34 AM CDT [facility] Urine URINE SPECIMEN OBTAINED BY CLEAN CATCH PROCEDURE / Unknown Collection / Unknown 07/18/2025 10:10 AM CDT 07/18/2025 10:21 AM CDT Narrative [facility] - 07/18/2025 10:34 AM CDT This test is a qualitative screen. [...] 50 ng/mL Tricyclic Antidepressants 300 ng/mL us Austyn Baer MD URINE ORDERABLES Final Result Performing Organization Address [facility]/ZIP Co de Phone Number [id number] [address] [place] [phone] * LACTIC ACID (07/18/2025 6:35 AM CDT) LACTIC ACID 0.5 <=2.0 mmol/L 07/18/2025 7:02 AM [facility] Blood Venipuncture / Unknown 07/18/2025 6:35 AM CDT 07/18/2025 6:41 AM CDT Austyn Baer MD CHEMISTRY ORDERABLES Final Resul t Performing Organization Address [facility] Co de Phone Number [facility] CLIA # [id number] [address] [place] [phone] * (ABNORMAL) BASIC METABOLIC PANEL (07/18/2025 6:35 AM CDT) SODIUM 137 136 - 145 mmol/L 07/18/2025 7:04 AM [facility] POTASSIUM 4.0 3.5 - 5.1 mmol/L 07/18/2025 7:04 AM [facility] CHLORIDE 104 98 - 107 mmol/L 07/18/2025 7:04 AM [facility] CO2 21(L) 22 - 29 mmol/L 07/18/2025 7:04 AM [facility] CALCIUM 8.8 8.6 - 10.0 mg/dL 07/18/2025 7:04 AM [facility] BUN 13 6 - 20 mg/dL 07/18/2025 7:04 AM [facility] CREATININE 0.78 0.67 - 1.17 mg/dL 07/18/2025 7:04 AM [facility] GLUCOSE 73(L) 74 - 99 mg/dL 07/18/2025 7:04 AM [facility] GFR >60 >=60 mL/min/1.7 3 sq meter 07/18/2025 7:04 AM [facility] Comment:eGFR calculated with 2020 CKD-EPI equation. Vegetarian diet, extremely high or low muscle mass, and may affect results. Cystatin C with Glomerular Filtration Rate is a suitable alternative for these patients. ANION GAP 12 5 - 20 mmol/L 07/18/2025 7:04 AM [facility] Blood Venipuncture / Unknown 07/18/2025 6:35 AM CDT 07/18/2025 6:41 AM CDT us Austyn Baer MD CHEMISTRY ORDERABLES Final Resul t [facility] CLIA # [id number] [address] [place] [id number] * (ABNORMAL) CBC WITH DIFFERENTIAL (07/18/2025 6:35 AM CDT) WBC 8.2 4.2 - 9.1 K/uL 07/18/2025 6:48 AM [facility] RBC 3.73(L) 4.63 - 6.08 M/uL 07/18/2025 6:48 AM [facility] HEMOGLOBIN 11.8(L) 13.7 - 17.5 g/dL 07/18/2025 6:48 AM [facility] HEMATOCRIT 33.2(L) 40.1 - 51.0 % 07/18/2025 6:48 AM [facility] MCV 89.0 79.0 - 92.2 fL 07/18/2025 6:48 AM [facility] MCH 31.6 25.7 - 32.2 pg 07/18/2025 6:48 AM [facility] MCHC 35.5 32.3 - 36.5 g/dL 07/18/2025 6:48 AM [facility] RDW 12.3 11.0 - 14.5 % 07/18/2025 6:48 AM [facility] RDW-STDEV 40.0 36.9 - 56.9 fL 07/18/2025 6:48 AM [facility] PLATELETS 176 130 - 400 K/uL 07/18/2025 6:48 AM [facility] MPV 11.4 10.0 - 14.8 fL 07/18/2025 6:48 AM [facility] NEUTROPHILS 74(H) 34 - 68 % 07/18/2025 6:48 AM [facility] LYMPHOCYTES 20(L) 22 - 53 % 07/18/2025 6:48 AM [facility] MONOCYTES 5 5 - 12 % 07/18/2025 6:48 AM [facility] EOSINOPHILS 0(L) 1 - 7 % 07/18/2025 6:48 AM [facility] BASOPHILS 0 0 - 1 % 07/18/2025 6:48 AM [facility] IMMATURE GRANULOCYTES 0 % 07/18/2025 6:48 AM [facility] NEUTROPHIL ABSOLUTE 6.06(H) 1.78 - 5.38 K/uL 07/18/2025 6:48 AM [facility] LYMPHOCYTE ABSOLUTE 1.65 1.20 - 3.40 K/uL 07/18/2025 6:48 AM [facility] MONOCYTE ABSOLUTE 0.42 0.30 - 0.82 K/uL 07/18/2025 6:48 AM [facility] EOSINOPHIL ABSOLUTE 0.01(L) 0.04 - 0.54 K/uL 07/18/2025 6:48 AM [facility] BASOPHILS ABSOLUTE 0.02 0.01 - 0.08 K/uL 07/18/2025 6:48 AM [facility] IMMATURE GRANULOCYTES ABSOLUTE 0.02 K/uL 07/18/2025 6:48 AM CDT [facility] Blood Venipuncture / Unknown 07/18/2025 6:35 AM CDT 07/18/2025 6:41 AM CDT us Austyn Baer MD HEMATOLOGY ORDERABLES Final Resu lt Performing Organization Address City/[facility]/ZIP Co de Phone Number [facility] [id number] [address] [place] [phone] * MAGNESIUM LEVEL (07/18/2025 6:35 AM CDT) MAGNESIUM 1.7 1.7 - 2.2 mg/dL 07/18/2025 7:04 AM CDT [facility] Blood Venipuncture / Unknown 07/18/2025 6:35 AM CDT 07/18/2025 6:41 AM CDT us Austyn Baer MD CHEMISTRY ORDERABLES Final Resul t Performing Organization Address [facility] Phone Number [facility] [id number] [address] [place] [phone] [place] [address] * TROPONIN 2 HR, 5TH GEN (07/18/2025 6:35 AM CDT) TROPONIN T, 2 HR 5TH GEN <6 <=15 ng/L 07/18/2025 7:02 AM CDT [facility] Blood Venipuncture / Unknown 07/18/2025 6:35 AM CDT 07/18/2025 6:41 AM CDT Narrative [facility] - 07/18/2025 7:02 AM CDT Troponin Undetectable Delay in collection of timed specimen beyond recommended collection interval. Results must be interpreted in clinical context. Unable to calculate delta. us Austyn Baer MD CHEMISTRY ORDERABLES Final Resul t Performing Organization Address City/[facility]/ZIP Co de Phone Number [facility] [id number] [address] [place] [phone] * CT CHEST ABDOMEN PELVIS WO CONT (07/18/2025 12:10 AM CDT) Anatomical Region Laterality Modality Chest Computed Tomogra phy 07/17/2025 11:2 0 PM CDT Impressions 07/18/2025 2:01 AM CDT IMPRESSION: 1. No acute process MACRO: None Narrative 07/18/2025 2:01 AM CDT EXAMINATION: CT CHEST ABDOMEN PELVIS WO CONT CLINICAL HISTORY: ASSOCIATED DIAGNOSIS: Sepsis, Unknown source of infection ORDERING PROVIDER: KOOJ URIAS TECHNOLOGISTS NOTE: COMPARISON: CT abdomen/pelvis 08/29/2022 TECHNIQUE: Contiguous axial images were obtained through the chest, abdomen and pelvis without contrast from the level of the thoracic inlet to the pubic symphysis. MPR sagittal and coronal reconstructions were obtained from the axial data. INTRA-PROCEDURE MEDS: FINDINGS: Cardiovasculature: Unremarkable Mediastinum/Pericardium: Unremarkable Pleura: Unremarkable Central Airways: Widely patent Lungs: No focal consolidation. Nodules: No nodules are present that require follow up. Lymph Nodes: No thoracic lymphadenopathy is evident. Hepatobiliary: Unremarkable liver without biliary dilation evident. Pancreas: Unremarkable Spleen: Unremarkable Adrenal Glands: Unremarkable Kidneys, ureters, and bladder: No calculi or hydroureteronephrosis. Abdominal and pelvic vasculature: Unremarkable GI tract: No evidence of obstruction. The appendix is within normal limits. Peritoneum and retroperitoneum: No free fluid or free air is noted. Lymph Nodes: No abdominal or pelvic lymphadenopathy is evident. Prostate and seminal vesicles: Unremarkable Visualized musculoskeletal structures: No acute fracture or destructive osseous lesion. Procedure Note Garrett Pryor MD - 07/18/2025 EXAMINATION: CT CHEST ABDOMEN PELVIS WO CONT CLINICAL HISTORY: ASSOCIATED DIAGNOSIS: Sepsis, Unknown source of infection ORDERING PROVIDER: KOJO URIAS TECHNOLOGISTS NOTE: COMPARISON: CT abdomen/pelvis 08/29/2022 TECHNIQUE: Contiguous axial images were obtained through the chest, abdomen and pelvis without contrast from the level of the thoracic inlet to the pubic symphysis. MPR sagittal and coronal reconstructions were obtained from the axial data. INTRA-PROCEDURE MEDS: FINDINGS: Cardiovasculature: Unremarkable Mediastinum/Pericardium: Unremarkable Pleura: Unremarkable Central Airways: Widely patent Lungs: No focal consolidation. Nodules: No nodules are present that require follow up. Lymph Nodes: No thoracic lymphadenopathy is evident. Hepatobiliary: Unremarkable liver without biliary dilation evident. Pancreas: Unremarkable Spleen: Unremarkable Adrenal Glands: Unremarkable Kidneys, ureters, and bladder: No calculi or hydroureteronephrosis. Abdominal and pelvic vasculature: Unremarkable GI tract: No evidence of obstruction. The appendix is within normal limits. Peritoneum and retroperitoneum: No free fluid or free air is noted. Lymph Nodes: No abdominal or pelvic lymphadenopathy is evident. Prostate and seminal vesicles: Unremarkable Visualized musculoskeletal structures: No acute fracture or destructive osseous lesion. IMPRESSION: 1. No acute process MACRO: None us Kojo Urias MD CT ORDERABLES Final Result * CK (07/17/2025 10:14 PM CDT) CK 255 39 - 308 U/L 07/18/2025 4:47 AM CDT [facility] Blood BLOOD SPECIMEN / Unknown Collection / Unknown 07/17/2025 10:14 PM CDT 07/18/2025 3:33 AM CDT us Austyn Baer MD CHEMISTRY ORDERABLES Final Resul t [facility] CLIA # [id number] [address] [place] [address] * C-REACTIVE PROTEIN (07/17/2025 10:14 PM CDT) CRP <3.0 <5.0 mg/L 07/18/2025 3:4 9 AM CDT [facility] Blood BLOOD SPECIMEN / Unknown Collection / Unknown 07/17/2025 10:14 PM CDT 07/18/2025 3:33 AM CDT us Leon Serrano MD CHEMISTRY ORDERABLES [id number] [address] [place] [id number] * SEDIMENTATION RATE (07/17/2025 10:14 PM CDT) [facility] ESR (SEDIMENTATION RATE) 6 0 - 15 mm/Hr 07/18/2025 3:48 AM CDT [facility] Blood BLOOD SPECIMEN / Unknown Collection / Unknown 07/17/2025 10:14 PM CDT 07/17/2025 10:22 PM CDT Narrative [facility] - 07/18/2025 3:48 AM CDT Tube Lot: [id number] Exp Date: 10/11/2026 QC1 LOT [id number] EXP.10/16/2025 QC2 LOT [id number] EXP.10/16/2025 us Leon Serrano MD HEMATOLOGY ORDERABLES Final Resu lt Performing Organization Address City/[facility]/ZIP Co de Phone Number [facility] [id number] [address] [place] [phone] * TROPONIN BASELINE, 5TH GEN (07/17/2025 10:14 PM CDT) [facility] TROPONIN T, BASELINE 5TH GEN <6 <=15 ng/L 07/18/2025 3:49 AM CDT [facility] Blood BLOOD SPECIMEN / Unknown Collection / Unknown 07/17/2025 10:14 PM CDT 07/18/2025 3:33 AM CDT Narrative [facility] - 07/18/2025 3:49 AM CDT Troponin Undetectable us Leon Serrano MD CHEMISTRY ORDERABLES [facility]ul t [facility] [id number] [address] [place] [id number] * ETHANOL LEVEL (07/17/2025 10:14 PM CDT) [facility] ETHANOL <10.10 <10.10 mg/dL 07/18/2025 3:49 AM CDT [facility] ETHANOL % <0.01 %w/v 07/18/2025 3:49 AM CDT [facility] Blood BLOOD SPECIMEN / Unknown Collection / Unknown 07/17/2025 10:14 PM CDT 07/18/2025 3:33 AM CDT us Leon Serrano MD CHEMISTRY ORDERABLES Final Resul t [facility] CLIA # [id number] [address] [place] [id number] * (ABNORMAL) LACTIC ACID (07/17/2025 10:14 PM CDT) LACTIC ACID 2.1(H) <=2.0 mmol/L 07/18/2025 12:40 AM CDT [facility] Blood BLOOD SPECIMEN / Unknown Collection / Unknown 07/17/2025 10:14 PM CDT 07/18/2025 12:26 AM CDT us Kojo Urias MD CHEMISTRY ORDERABLES Final Result [facility] CLIA # [id number] [address] [place] [address] * TSH (07/17/2025 10:14 PM CDT) TSH 1.67 0.27 - 4.20 uIU/mL 07/17/2025 10:51 PM CDT [facility] Blood BLOOD SPECIMEN / Unknown Collection / Unknown 07/17/2025 10:14 PM CDT 07/17/2025 10:22 PM CDT us Kojo Urias MD CHEMISTRY ORDERABLES Final Result [facility] CLIA # [id number] [address] [place] [address] * LIPASE (07/17/2025 10:14 PM CDT) Pathologist [facility] LIPASE 21 13 - 60 U/L 07/17/2025 10:51 PM [facility] Blood BLOOD SPECIMEN / Unknown Collection / Unknown 07/17/2025 10:14 PM CDT 07/17/2025 10:22 PM CDT Kojo Urias MD CHEMISTRY ORDERABLES Final Result [id number] [address] [place] [address] * (ABNORMAL) COMPREHENSIVE METABOLIC PANEL (07/17/2025 10:14 PM CDT) [facility] SODIUM 139 136 - 145 mmol/L 07/17/2025 10:51 PM [facility] POTASSIUM 3.4(L) 3.5 - 5.1 mmol/L 07/17/2025 10:51 PM [facility] CHLORIDE 99 98 - 107 mmol/L 07/17/2025 10:51 PM [facility] CO2 21(L) 22 - 29 mmol/L 07/17/2025 10:51 PM [facility] CALCIUM 10.0 8.6 - 10.0 mg/dL 07/17/2025 10:51 PM [facility] BUN 14 6 - 20 mg/dL 07/17/2025 10:51 PM [facility] CREATININE 0.96 0.67 - 1.17 mg/dL 07/17/2025 10:51 PM [facility] GLUCOSE 110(H) 74 - 99 mg/dL 07/17/2025 10:51 PM [facility] TOTAL PROTEIN 7.9 6.6 - 8.7 g/dL 07/17/2025 10:51 PM [facility] ALBUMIN 4.9 3.5 - 5.2 g/dL 07/17/2025 10:51 PM [facility] BILIRUBIN TOTAL 0.7 0.0 - 1.2 mg/dL 07/17/2025 10:51 PM [facility] ALKALINE PHOSPHATASE 76 40 - 129 U/L 07/17/2025 10:51 PM [facility] AST 45 0 - 50 U/L 07/17/2025 10:51 PM [facility] ALT 113(H) 0 - 50 U/L 07/17/2025 10:51 PM [facility] GFR >60 >=60 mL/min/1.7 3 sq meter 07/17/2025 10:51 PM [facility] Comment:eGFR calculated with 2020 CKD-EPI equation. Vegetarian diet, extremely high or low muscle mass, and may affect results. Cystatin C with Glomerular Filtration Rate is a suitable alternative for these patients. ANION GAP 19 5 - 20 mmol/L 07/17/2025 10:51 PM [facility] Blood BLOOD SPECIMEN / Unknown Collection / Unknown 07/17/2025 10:14 PM CDT 07/17/2025 10:22 PM CDT us Kojo Urias MD CHEMISTRY ORDERABLES Final Result [facility] CLIA # [id number] [address] [place] [address] * (ABNORMAL) CBC WITH DIFFERENTIAL (07/17/2025 10:14 PM CDT) WBC 10.4(H) 4.2 - 9.1 K/uL 07/17/2025 10:27 PM [facility] RBC 4.64 4.63 - 6.08 M/uL 07/17/2025 10:27 PM [facility] HEMOGLOBIN 14.7 13.7 - 17.5 g/dL 07/17/2025 10:27 PM [facility] HEMATOCRIT 39.6(L) 40.1 - 51.0 % 07/17/2025 10:27 PM [facility] MCV 85.3 79.0 - 92.2 fL 07/17/2025 10:27 PM [facility] MCH 31.7 25.7 - 32.2 pg 07/17/2025 10:27 PM [facility] MCHC 37.1(H) 32.3 - 36.5 g/dL 07/17/2025 10:27 PM [facility] RDW 12.2 11.0 - 14.5 % 07/17/2025 10:27 PM [facility] RDW-STDEV 37.7 36.9 - 56.9 fL 07/17/2025 10:27 PM [facility] PLATELETS 255 130 - 400 K/uL 07/17/2025 10:27 PM [facility] MPV 11.2 10.0 - 14.8 fL 07/17/2025 10:27 PM [facility] NEUTROPHILS 58 34 - 68 % 07/17/2025 10:27 PM [facility] LYMPHOCYTES 34 22 - 53 % 07/17/2025 10:27 PM [facility] MONOCYTES 7 5 - 12 % 07/17/2025 10:27 PM [facility] EOSINOPHILS 1 1 - 7 % 07/17/2025 10:27 PM [facility] BASOPHILS 1 0 - 1 % 07/17/2025 10:27 PM [facility] IMMATURE GRANULOCYTES 0 % 07/17/2025 10:27 PM [facility] NEUTROPHIL ABSOLUTE 6.01(H) 1.78 - 5.38 K/uL 07/17/2025 10:27 PM [facility] LYMPHOCYTE ABSOLUTE 3.49(H) 1.20 - 3.40 K/uL 07/17/2025 10:27 PM [facility] MONOCYTE ABSOLUTE 0.75 0.30 - 0.82 K/uL 07/17/2025 10:27 PM [facility] EOSINOPHIL ABSOLUTE 0.05 0.04 - 0.54 K/uL 07/17/2025 10:27 PM CDT [facility] BASOPHILS ABSOLUTE 0.05 0.01 - 0.08 K/uL 07/17/2025 10:27 PM CDT [facility] IMMATURE GRANULOCYTES ABSOLUTE 0.02 K/uL 07/17/2025 10:27 PM CDT [facility] Blood BLOOD SPECIMEN / Unknown Collection / Unknown 07/17/2025 10:14 PM CDT 07/17/2025 10:22 PM CDT us Kojo Urias MD HEMATOLOGY ORDERABLES Final Result [facility] CLIA # [id number] [address] [place] [id number] documented in this encounter Visit Diagnoses Diagnosis Acute generalized body pain- Primary Generalized abdominal discomfort Abdominal pain, generalized Constipation Unspecified constipation documented in this encounter Administered Medications Inactive Administered Medications - up to 3 most recent administrations Medication Order MAR Action Action Date Dose Rate Site acetaminophen (TYLENOL) tablet 650 mg 650 mg, Oral, EVERY 6 HOURS PRN, Starting on Thu07/18/25 at 0308, Until Thu07/18/25 at 1314, Other (See Comment), See admin instructions, Routine ALPRAZolam (XANAX) disintegrating tablet 1 mg 1 mg, Oral, ONE TIME ONLY, 1 dose, On Thu07/17/25 at 2315, Routine Given 07/17/2025 11:06 PM CDT 1 mg diphenhydrAMINE (BENADRYL) injection 25 mg 25 mg, IV, ONE TIME ONLY, 1 dose, On Thu07/17/25 at 2230, Routine Given 07/17/2025 10:28 PM CDT 25 mg haloperidol lactate (HALDOL) injection 2.5 mg 2.5 mg, IV, ONE TIME ONLY, 1 dose, On Thu07/17/25 at 2230, Routine Given 07/17/2025 10:31 PM CDT 2.5 mg ketorolac (TORADOL) injection 10 mg 10 mg, IV, ONE TIME ONLY, 1 dose, On Thu07/17/25 at 2315, Routine Given 07/17/2025 11:03 PM CDT 10 mg morphine 4 mg/mL injection 4 mg 4 mg, IV, ONE TIME ONLY, 1 dose, On Thu07/17/25 at 2345, Routine Given 07/17/2025 11:46 PM CDT 4 mg naloxone (NARCAN) 0.4 mg/mL injection 0.1-0.4 mg 0.1-0.4 mg, IV, SEE ADMIN INSTRUCTIONS, Starting on Thu07/18/25 at 0308, Until Thu07/18/25 at 1314, Routine ondansetron (ZOFRAN ODT) tablet 4 mg 4 mg, Oral, EVERY 8 HOURS PRN, Starting on Thu07/18/25 at 0315, Until Thu07/18/25 at 1314, Nausea/Emesis, Routine pantoprazole (PROTONIX) 40 mg in sodium chloride 0.9% 10 mL injection 40 mg, IV, DAILY, First dose on Thu07/18/25 at 0900, Until Discontinued, Routine, For vial+diluent: 10 mL NS is needed to reconstitute pantoprazole vial. For doses less than 40 mg Epic may default less than 10 mL NS. Pharmacist to change NS dispense amount to 10 mL., Indication: Gastroesophageal reflux disease (GERD) Given 07/18/2025 9:08 AM CDT 40 mg sodium chloride 0.9 % bolus solution 1,000 mL 1,000 mL, IV, ONE TIME ONLY, 1 dose, On Thu07/17/25 at 2230, at 2,000 mL/hr, Administer over 30 Minutes, Routine New Bag 07/17/2025 10:27 PM CDT 1,000 mL 2000 mL/hr sodium chloride 0.9 % bolus solution 1,000 mL 1,000 mL, IV, ONE TIME ONLY, 1 dose, On Thu07/17/25 at 2315, at 2,000 mL/hr, Administer over 30 Minutes, Routine New Bag 07/17/2025 11:15 PM CDT 1,000 mL 2000 mL/hr sodium chloride 0.9 % infusion IV, at 150 mL/hr, CONTINUOUS, Starting on Thu07/18/25 at 0330, Until Thu07/18/25 at 1314, Routine New Bag 07/18/2025 3:57 AM CDT 150 mL/hr sodium chloride flush injection 10 mL 10 mL, IV, EVERY 12 HOURS (BlD), First dose on Thu07/18/25 at 0900, Until Discontinued, Routine sodium chloride flush injection 10 mL 10 mL, IV, SEE ADMIN INSTRUCTIONS, Starting on Thu07/18/25 at 0308, Until Thu07/18/25 at 1314, Routine sodium chloride flush injection 10 mL 10 mL, IV, EVERY 12 HOURS (BlD), First dose on Thu07/18/25 at 0900, Until Discontinued, Routine Given 07/18/2025 9:09 AM CDT 10 mL documented in this encounter Active and Recently Administered Medications Times are shown in CDT. Scheduled Medication Order 07/16/2025 07/17/2025 07/18/2025 ALPRAZolam (XANAX) disintegrating tablet 1 mg (COMPLETED) 1 mg, Oral, ONE TIME ONLY, 1 dose, On Thu07/17/25 at 2315, Routine 2306 (Given - Provider: Alie Baumann RN) dextrose 5 % infusion 25 mL IV, at 0-500 mL/hr, SEE ADMIN INSTRUCTIONS, Starting on Thu07/18/25 at 0430, Until Thu07/18/25 at 1314, Routine diphenhydrAMINE (BENADRYL) injection 25 mg (COMPLETED) 25 mg, IV, ONE TIME ONLY, 1 dose, On Thu07/17/25 at 2230, Routine 2228 (Given - Provider: Daily Manuel, BENJI) haloperidol lactate (HALDOL) injection 2.5 mg (COMPLETED) 2.5 mg, IV, ONE TIME ONLY, 1 dose, On Thu07/17/25 at 2230, Routine 2231 (Given - Provider: Daily Manuel, BENJI) ketorolac (TORADOL) injection 10 mg (COMPLETED) 10 mg, IV, ONE TIME ONLY, 1 dose, On Thu07/17/25 at 2315, Routine 2303 (Given - Provider: Daily Manuel, BENJI) morphine 4 mg/mL injection 4 mg (COMPLETED) 4 mg, IV, ONE TIME ONLY, 1 dose, On Thu07/17/25 at 2345, Routine 2346 (Given - Provider: Daily ManuelBENJI) naloxone (NARCAN) 0.4 mg/mL injection 0.1-0.4 mg 0.1-0.4 mg, IV, SEE ADMIN INSTRUCTIONS, Starting on Thu07/18/25 at 0308, Until Thu07/18/25 at 1314, Routine pantoprazole (PROTONIX) 40 mg in sodium chloride 0.9% 10 mL injection 40 mg, IV, DAILY, First dose on Thu07/18/25 at 0900, Until Discontinued, Routine, For vial+diluent: 10 mL NS is needed to reconstitute pantoprazole vial. For doses less than 40 mg Epic may default less than 10 mL NS. Pharmacist to change NS dispense amount to 10 mL., Indication: Gastroesophageal reflux disease (GERD) 0908 (Given - Provider: Renetta Menjivar RN) sodium chloride 0.9 % bolus solution 1,000 mL (COMPLETED) 1,000 mL, IV, ONE TIME ONLY, 1 dose, On Thu07/17/25 at 2230, at 2,000 mL/hr, Administer over 30 Minutes, Routine 2227 (New Bag - Provider: Daily Manuel RN)2257 (Stopped - Provider: Daily Manuel, BENJI) sodium chloride 0.9 % bolus solution 1,000 mL (COMPLETED) 1,000 mL, IV, ONE TIME ONLY, 1 dose, On Thu07/17/25 at 2315, at 2,000 mL/hr, Administer over 30 Minutes, Routine 2315 (New Bag - Provider: Daily Manuel RN)2345 (Stopped - Provider: Daily Manuel, BENJI) sodium chloride 0.9 % infusion 25 mL IV, at 0-500 mL/hr, SEE ADMIN INSTRUCTIONS, Starting on Thu07/18/25 at 0430, Until Thu07/18/25 at 1314, Routine sodium chloride flush injection 10 mL 10 mL, IV, EVERY 12 HOURS (BlD), First dose on Thu07/18/25 at 0900, Until Discontinued, Routine 0900 (Canceled Entry - Provider: Renetta Menjivar RN) sodium chloride flush injection 10 mL 10 mL, IV, SEE ADMIN INSTRUCTIONS, Starting on Thu07/18/25 at 0308, Until Thu07/18/25 at 1314, Routine sodium chloride flush injection 10 mL 10 mL, IV, EVERY 12 HOURS (BlD), First dose on Thu07/18/25 at 0900, Until Discontinued, Routine 0909 (Given - Provider: Renetta Menjivar RN) sodium chloride flush injection 10 mL 10 mL, IV, SEE ADMIN INSTRUCTIONS, Starting on Thu07/18/25 at 0430, Until Thu07/18/25 at 1314, Routine Continuous Medication Order 07/16/2025 07/17/2025 07/18/2025 sodium chloride 0.9 % infusion IV, at 150 mL/hr, CONTINUOUS, Starting on Thu07/18/25 at 0330, Until Thu07/18/25 at 1314, Routine 0357 (New Bag - Prov ider: Jessica Triana RN)1314 (Due: Order Ending - Provider: PROVIDER, DISCHARGE PATIENT - Comment: [Order ends at this time. Document the following action when infusion is complete: Stopped]) PRN Medication Order 07/16/2025 07/17/2025 07/18/2025 acetaminophen (TYLENOL) tablet 650 mg 650 mg, Oral, EVERY 6 HOURS PRN, Starting on Thu07/18/25 at 0308, Until Thu07/18/25 at 1314, Other (See Comment), See admin instructions, Routine ondansetron (ZOFRAN ODT) tablet 4 mg 4 mg, Oral, EVERY 8 HOURS PRN, Starting on Thu07/18/25 at 0315, Until Thu07/18/25 at 1314, Nausea/Emesis, Routine documented in this encounter Care Teams Wet Process Miller Head Relationship Specialty Start Date End Date Starla Campbell DO [address] [place] [id number] PCP - General Family Practice 01/22/24 documented as of this encounter
--- OUTSIDE RECORDS SUMMARY | 2025-07-18 19:16 | XMS_ITS | Encounter Summary ---
Author Organization [facility] Address [address] [place] [address] Care Team Providers Care Supervisor Nuclear Medicine Name Role Phone Starla Campbell Primary Care Provider Reason for Visit * Reason Comments Back Pain Encounter Details Date Type Department Care Team (Late st Contact Info) Description 07/18/2025 7:16 PM CDT - 07/18/2025 8:22 PM CDT Emergency [facility] Emergency Medicine [address] [place] [address] Lito Urias MD [address] [place] [phone] Chronic midline low back pain without sciatica (Primary Dx) Discharge Disposition: Home or Self Care Social [...] worry about transportation for future doctor visits, pickle sorter medication, etc.? 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 Gender Identity Not on file Sexual Orientation Not on file documented as of this encounter Last Filed Vital Signs Vital Sign Reading Time Taken Comments Blood Pressure 125/86 07/18/2025 8:00 PM CDT Pulse 98 07/18/2025 8:00 PM CDT Temperature 36.8 C (98.3 F) 07/18/2025 7:18 PM CDT Respiratory Rate 18 07/18/2025 8:00 PM CDT Oxygen Saturation 99% 07/18/2025 8:00 PM CDT Inhaled Oxygen Concentration - - Weight 62.6 kg (138 lb) 07/18/2025 7:18 PM CDT Height 177.8 cm (5' 10 ) 07/18/2025 7:18 PM CDT Body Mass Index 19.8 07/18/2025 7:18 PM CDT documented in this encounter Discharge Instructions * Discharge Instructions* Lito Urias MD - 07/18/2025 7:36 PM CDT You were seen in the ER today for back pain. [facility] [place] You discharged this morning after thorough evaluation for an ER forback pain and generalized discomfort. The exact cause of your symptoms at this time are unknown however it is likely to be a muscle spasm or possible back strain. I will prescribe meloxicam and Flexeril for 3 days. I recommend you follow-up with your PCP for further evaluation and additional treatment as needed. Please return to the ER if you have significant back pain, loss of sensation or instability. * Attachments The following attachments cannot be sent through Care Everywhere. * Back Pain (Turkish) documented in this encounter Medications at Time of Discharge cyclobenzaprine (FLEXERIL) 10 mg tablet Take 1 Tablet (10 mg) by mouth 3 times daily as needed for Spasm. 3 Tablet 07/18/2025 5 meloxicam (MOBIC) 7.5 mg tablet Take 1 Tablet (7.5 mg) by mouth daily for 3 days. 3 Tablet 07/18/2025 5 EPINEPHrine (EPIPEN) 0.3 mg/0.3 mL Auto-InjectorInd ications:Allergy to galactose-alpha- 1,3-galactose Inject 0.3 mL (0.3 mg) by intramuscular injection 1 time daily as needed for Anaphylaxis. 2 Each 3 11/28/2024 documented as of this encounter ED Notes * Gallito Perez RN - 07/18/2025 7:33 PM CDT Pt reports to the ed with co mid back pain. Pt reports that pain started while sitting in his chair. Pt reports that he thinks his chair in his house is causing the pain. Pt reports he has 2 chairs in his house and hasn't tried the other chair to see if that helps with his pain. Pt has no disturbedgait and is able to adjust the angle of the bed while laying in the bed and is able to change positrons in the bed without increase in pain. Pt is a/o X4 with even and unlabored breathing and denies any CP,SOB, or ABD pain at this time. * Lito Urias MD - 07/18/2025 7:13 PM CDT 07/18/25 7:18 PM HISTORY OF PRESENT ILLNESS History of Present Illness The patient is a 19-year-old male presenting for back pain. He reports experiencing back pain, specifically in the middle towards the sides. The onset of this discomfort was yesterday evening, which he describes as a sudden stiffening and spasming sensation while lying down. He has a history of similar spasms. Despite taking Tylenol 1000 mg, he has not noticed any improvement in his pain. He was advised against using ibuprofen due to a recent episode of liver inflammation. He expresses a desire to stay overnight due to his current discomfort and occasional feelings of anxiety. Patient denies loss of bowel or bladder control, no numbness, no tingling PAST MEDICAL HISTORY REVIEWED MEDICAL: Patient has a past medical history of Generalized anxiety disorder, GERD (gastroesophageal reflux disease), Patient denies relevant medical history, and Peptic ulcer. SURGICAL: Patient has a past surgical history that includes pt denies relevant surgical history. ALLERGIES Iodinated contrast media; Sesame seed; Shrimp; Alpha-gal (bzlxcrgud-hugvn-8,3-galactose); and Milk PHYSICAL EXAM INITIAL VS BP: (!) 136/90 (07/18/251917), Heart Rate: 98 bpm (07/18/251917), Resp: 16 (07/18/251917), Pulse: 98 (07/18/251999), Temp: 98.3 ??F (36.8 ??C) (07/18/251917), Temp src: Tympanic (07/18/251917),SpO2: 98 % (07/18/251917), Height: 5' 10 (177.8 cm) (07/18/251917), Weight: 62.6 kg (138 lb) (07/18/251917), BMI (Calculated): 19.8 (07/18/251917) No LMP for male patient. Blood pressure 125/86, pulse 98, temperature 98.3 ??F (36.8 ??C), temperature source Tympanic, resp. rate 18, height 5' 10 (1.778 m), weight 62.6 kg (138 lb), SpO2 99%. Physical Exam Physical Exam General: No acute distress Head: Normocephalic, atraumatic Cardiac: Limbs well-perfused Lungs: Breathing comfortably on room air Musculoskeletal: Tenderness noted in the mid-back, no step-off, no pinpoint tenderness Extremities: Moving all extremities without difficulty, F ROM Neuro: Sensation intact, cranial nerves II through XII intact DIAGNOSTICS LAB: No data to display RADIOLOGY: No orders to display EKG: Results Results independently interpreted by Lito Urias MD PROCEDURES Procedures MEDICAL DECISION MAKING AND PLAN OF CARE Assessment & Plan Initial Assessment: 19-year-old male presenting with back pain, likely due to muscle strain or spasms. Differential Diagnosis: - Muscle strain or spasms: Likely cause. No imaging or labs needed. Prescribed Flexeril, ibuprofen,Tylenol, meloxicam. - Liver concerns: Patient reports inflamed liver. Avoid ibuprofen. Use Tylenol. ED Course: - Prescribed Flexeril for sleep during muscle spasms. - Prescribed ibuprofen 600 mg and Tylenol 1000 mg three times daily for pain. - Prescribed meloxicam for morning use. Final Assessment: Back pain likely due to muscle strain or spasms. No imaging or labs needed. Prescribed medications for pain management and sleep aid. Clinical Impression: - Muscle strain or spasms Disposition: - Discharge: Ready for discharge when patient's mother arrives. Patient prescribed 3 days of Flexeril and meloxicam. Patient tolerating p.o.'s, ambulating without difficulty and in stable condition at time of discharge. Follow-Up: - Follow up with primary care physician if pain persists. Patient Education: Advised on medication use: Flexeril at night, ibuprofen 600 mg and Tylenol 1000 mg three times daily, meloxicam in the morning. Medical Decision Making Risk Prescription drug management. Clinical Scoring & Consults Medications Administered During the ED Stay from 07/18/2025 1913 to 07/18/20252022 Date/Time Order Dose Route Action 07/18/20251942 CDT ibuprofen (MOTRIN) tablet 600 mg 600 mg Oral Given 07/18/20251941 CDT cyclobenzaprine (FLEXERIL) tablet 10 mg 10 mg Oral Given Discharge Medication List as of 07/18/2025 8:07 PM START taking these medications Details cyclobenzaprine (FLEXERIL) 10 mg tablet Take 1 Tablet (10 mg) by mouth 3 times daily as needed for Spasm., Disp-3 Tablet, R-0 meloxicam (MOBIC) 7.5 mg tablet Take 1 Tablet (7.5 mg) by mouth daily for 3 days., Disp-3 Tablet, R-0 CONTINUE these medications which have NOT CHANGED Details EPINEPHrine (EPIPEN) 0.3 mg/0.3 mL Auto-Injector Inject 0.3 mL (0.3 mg) by intramuscular injection 1 time daily as needed for Anaphylaxis., Disp-2 Each, R-3 LAST VS BP: 125/86 (07/18/251999), Heart Rate: 98 bpm (07/18/251917), Resp: 18 (07/18/251999), Pulse: 98(07/18/251999), Temp: 98.3 ??F (36.8 ??C) (07/18/251917), Temp src: Tympanic (07/18/251917), SpO2: 99 % (07/18/251999) CLINICAL IMPRESSION Diagnosis Diagnosis Comment Added By Time Added Chronic midline low back pain without sciatica [M54.50, G89.29] Lito Urias MD 07/18/2025 7:36 PM DISPOSITION, EDUCATION AND MEDICATION RECONCILIATION Medications reconciled. See after visit summary for patient education on discharged patients. ED Disposition ED Disposition Discharge Condition Stable User Lito Urias MD Date/Time ThuJul 18, 2025 7:35 PM Comment -- documented in this encounter Miscellaneous Notes * Gen AI PREM - GENERATIVE AI HANDOFF NOTE - 07/18/2025 9:40 PM CDT ## ER_course: ## # DIAGNOSIS: Chronic midline low back pain without sciatica, likely due to muscle strain or spasms. # The patient, a 19-year-old male, presented with mid-back pain that began suddenly while sitting. He described the pain as a stiffening and spasming sensation. The patient has a history of similar spasms and was advised against using ibuprofen due to a recent episode of liver inflammation. # During the ER visit, the patient was prescribed Flexeril for sleep during muscle spasms, ibuprofen 600 mg, Tylenol 1000 mg three times daily for pain, and meloxicam for morning use. # Abnormal findings included elevated blood pressure at 136/90. The patient was in stable condition at discharge, ambulating without difficulty, and tolerating oral intake. ## Follow_up_orders: ## # The patient is to follow up with a primary care physician if the pain persists. # New prescriptions include Flexeril 10 mg to be taken three times daily as needed for spasms, and meloxicam 7.5 mg to be taken daily for 3 days. # The patient was advised on medication use: Flexeril at night, ibuprofen 600 mg and Tylenol 1000 mg three times daily, and meloxicam in the morning. ## Home_Situation: ## # No specific factors potentially impairing follow-up care were noted in the ER documentation. documented in this encounter Plan of Treatment Not on file documented as of this encounter Visit Diagnoses Diagnosis Chronic midline low back pain without sciatica- Primary documented in this encounter Administered Medications Active Administered Medications - up to 3 most recent administrations Medication Order MAR Action Action Date Dose Rate Site cyclobenzaprine (FLEXERIL) tablet 10 mg 10 mg, Oral, THREE TIMES DAILY PRN, Starting on Thu07/18/25 at 1935, Until Discontinued, Spasm, Routine Given 07/18/2025 7:42 PM CDT 10 mg Inactive Administered Medications - up to 3 most recent administrations Medication Order MAR Action Action Date Dose Rate Site ibuprofen (MOTRIN) tablet 600 mg 600 mg, Oral, ONE TIME ONLY, 1 dose, On Thu07/18/25 at 1945, Routine Given 07/18/2025 7:43 PM CDT 600 mg documented in this encounter Active and Recently Administered Medications Times are shown in CDT. Scheduled Medication Order 07/16/2025 07/17/2025 07/18/2025 ibuprofen (MOTRIN) tablet 600 mg (COMPLETED) 600 mg, Oral, ONE TIME ONLY, 1 dose, On Thu07/18/25 at 1945, Routine 1943 (Given - Provid er: Gallito Perez RN) PRN Medication Order 07/16/2025 07/17/2025 07/18/2025 cyclobenzaprine (FLEXERIL) tablet 10 mg 10 mg, Oral, THREE TIMES DAILY PRN, Starting on Thu07/18/25 at 1935, Until Discontinued, Spasm, Routine 1941 (Given - Provid er: Gallito Perez RN) documented in this encounter Care Teams Supervisor Nuclear Medicine Relationship Specialty Start Date End Date Starla Campbell DO [address] [place] [address] PCP - General Family Practice 01/22/24 documented as of this encounter
--- OUTSIDE RECORDS SUMMARY | 2025-07-18 22:11 | XMS_ITS | Encounter Summary ---
Author Organization [facility] Address [address] [place] [address] Care Team Providers Care Accounting Consultant Name Role Phone Mk García MD Primary Care Provider [phone] [phone] Encounter Details Date Type Department Care Team (Latest Contact Info) Description 2005 Outpatient [facility] Medicine- [address] [phone] Salome Whiteside MD [address] [place] [phone] Routine child health exam (Primary Dx) Social History Tobacco Use Types Packs/Day Years Used Date Smoking Tobacco: Never Assessed Sex and Gender Information Value Date Recorded Sex Assigned at Not on file Legal Sex Male 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
--- OUTSIDE RECORDS SUMMARY | 2025-07-18 22:11 | XMS_ITS | Encounter Summary ---
Author Organization [facility] Address [address] [place] [address] Care Team Providers Care Vice President Safety Name Role Phone Mk García MD Primary Care Provider [phone] [phone] Encounter Details Date Type Department Care Team (Latest Contact Info) Description 2005 Outpatient [facility] Medicine[address] [phone] Salome Whiteside MD [address] [place] [phone] ACUTE BRONCHIOLITIS/RESP SYNC VIRUS (Primary Dx); Respirat syncytial virus Social History Tobacco Use Types Packs/Day Years Used Date Smoking Tobacco: Never Assessed Sex and Gender Information Value Date Recorded Sex Assigned at Not on file Legal Sex Male 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
--- OUTSIDE RECORDS SUMMARY | 2025-07-18 22:12 | XMS_ITS | Encounter Summary ---
Author Organization [facility] Address [address] [place] [address] Care Team Providers Care Manager Of Operations Name Role Phone Mk García MD Primary Care Provider [phone] [phone] Encounter Details Date Type Department Care Team (Latest Contact Info) Description 2005 Outpatient Historical [facility] 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
--- OUTSIDE RECORDS SUMMARY | 2025-07-18 22:12 | XMS_ITS | Encounter Summary ---
Author Organization [facility] Address [address] [place] [address] Care Team Providers Care Nurse Receptionist Name Role Phone Mk García MD Primary Care Provider [phone] [phone] Encounter Details Date Type Department Care Team (Latest Contact Info) Description 2005 Outpatient Historical [facility] Family Medicine- [place] [address] [place] [address] Zach Patricia MD [address] [place] [address] ACUTE URI NOS (Primary Dx) Social History Tobacco Use Types Packs/Day Years Used Date Smoking Tobacco: Never Assessed Sex and Gender Information Value Date Recorded Sex Assigned at Not on file Legal Sex Male 4:06 AM SUPERVISOR LIQUEFACTION Gender Identity Not on file Sexual Orientation Not on file documented as of this encounter Plan of Treatment Not on file documented as of this encounter Visit Diagnoses Diagnosis Acute upper respiratory infections of unspecified site- Primary documented in this encounter Care Teams Nurse Receptionist Relationship Specialty Start Date End Date Mk García MD [address] [place] [phone] PCP - General Family Practice 01/30/17 documented as of this encounter
--- OUTSIDE RECORDS SUMMARY | 2025-07-18 22:12 | XMS_ITS | Encounter Summary ---
Author Organization [facility] Address [address] [place] [address] Care Team Providers Care Senior Net Developer Architect Name Role Phone Mk García MD Primary Care Provider [phone] [phone] Encounter Details Date Type Department Care Team (Latest Contact Info) Description 02/05/2006 Outpatient [facility] Medicine- [address] [phone] Salome Whiteside MD [address] [place] [phone] Routine Child Health Exam (Primary Dx) Social History Tobacco Use Types Packs/Day Years Used Date Smoking Tobacco: Never Assessed Sex and Gender Information Value Date Recorded Sex Assigned at Not on file Legal Sex Male 4:06 AM LUMBER SCALER Gender Identity Not on file Sexual Orientation Not on file documented as of this encounter Plan of Treatment Not on file documented as of this encounter Visit Diagnoses Diagnosis Routine child health exam- Primary Routine or child health check documented in this encounter Care Teams Senior Net Developer Architect Relationship Specialty Start Date End Date Mk García MD [address] [facility] [address] [place] [phone] PCP - General Family Practice 01/30/17 documented as of this encounter
--- OUTSIDE RECORDS SUMMARY | 2025-07-18 22:12 | XMS_ITS | Encounter Summary ---
Author Organization [facility] Address [address] [place] [address] Care Team Providers Care Aircraft Tool Maker Name Role Phone Mk García MD Primary Care Provider [phone] [phone] Encounter Details Date Type Department Care Team (Latest Contact Info) Description 2005 Outpatient [facility] Medicine- [address] [phone] Salome Whiteside MD [address] [place] [phone] Routine child health exam (Primary Dx) Social History Tobacco Use Types Packs/Day Years Used Date Smoking Tobacco: Never Assessed Sex and Gender Information Value Date Recorded Sex Assigned at Not on file Legal Sex Male 4:06 AM TOUR MANAGER Gender Identity Not on file Sexual Orientation Not on file documented as of this encounter Plan of Treatment Not on file documented as of this encounter Visit Diagnoses Diagnosis Routine child health exam- Primary Routine or child health check documented in this encounter Care Teams Aircraft Tool Maker Relationship Specialty Start Date End Date Mk García MD [address] [facility] [address] [place] [phone] PCP - General Family Practice 01/30/17 documented as of this encounter
--- OUTSIDE RECORDS SUMMARY | 2025-07-18 22:13 | XMS_ITS | Encounter Summary ---
Author Organization [facility] Address [address] [place] [address] Care Team Providers Care Radio Interference Investigator Name Role Phone Mk García MD Primary Care Provider [phone] [phone] Encounter Details Date Type Department Care Team (Latest Contact Info) Description 09/29/2006 Outpatient Historical [facility] Medicine [place] [address] [phone] Roz Paul, INCLUSION TEACHER [address] [place] [phone] Acute Upper Respiratory Infections of Unspecified Site (Primary Dx); Other Conjunctivitis Social History Tobacco Use Types Packs/Day Years Used Date Smoking Tobacco: Never Assessed Sex and Gender Information Value Date Recorded Sex Assigned at Not on file Legal Sex Male 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
--- OUTSIDE RECORDS SUMMARY | 2025-07-18 22:13 | XMS_ITS | Encounter Summary ---
Author Organization [facility] Address [address] [place] [address] Care Team Providers Care Barrel Endshaker Adjuster Name Role Phone Mk García MD Primary Care Provider [phone] [phone] Encounter Details Date Type Department Care Team (Latest Contact Info) Description 01/12/2007 Outpatient Historical [facility] Medicine [place] [address] [phone] Meg Hull NP NO ADDRESS ON FILE Genu Varum (Primary Dx); Acute Pharyngitis Social History Tobacco Use Types Packs/Day Years Used Date Smoking Tobacco: Never Assessed Sex and Gender Information Value Date Recorded Sex Assigned at Not on file Legal Sex Male 4:06 AM TONGUE AND QUARTER STITCHER Gender Identity Not on file Sexual Orientation Not on file documented as of this encounter Plan of Treatment Not on file documented as of this encounter Visit Diagnoses Diagnosis Genu varum- Primary Genu varum (acquired) Acute pharyngitis documented in this encounter Care Teams Barrel Endshaker Adjuster Relationship Specialty Start Date End Date Mk García MD [address] [address] PCP - General Family Practice 01/30/17 documented as of this encounter
--- OUTSIDE RECORDS SUMMARY | 2025-07-18 22:13 | XMS_ITS | Encounter Summary ---
Author Organization [facility] Address [address] [place] [address] Care Team Providers Care Flute Polisher Name Role Phone Mk García MD Primary Care Provider [phone] [phone] Encounter Details Date Type Department Care Team (Latest Contact Info) Description 2005 Outpatient Historical [facility] Family Medicine- [place] [address] [place] [address] Zach Patricia MD [address] [place] [address] ACUTE BRONCHIOLITIS/RESP SYNC VIRUS (Primary Dx); Respirat syncytial virus Social History Tobacco Use Types Packs/Day Years Used Date Smoking Tobacco: Never Assessed Sex and Gender Information Value Date Recorded Sex Assigned at Not on file Legal Sex Male 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
[2025-07-18 22:14] VITALS: BP 158/89; PULSE 103; RESP 18; TEMP 36.8; O2SAT 97; BMI 19.6
--- OUTSIDE RECORDS SUMMARY | 2025-07-18 22:14 | XMS_ITS | Encounter Summary ---
Author Organization [facility] Address [address] [place] [address] Care Team Providers Care Blind Hooker Name Role Phone Mk García MD Primary Care Provider [phone] [phone] Encounter Details Date Type Department Care Team (Latest Contact Info) Description 07/14/2006 Outpatient Historical [facility] Medicine [place] [address] [phone] Meg Hull NP NO ADDRESS ON FILE Unspecified Otitis Media (Primary Dx); Acute Pharyngitis Social History Tobacco Use Types Packs/Day Years Used Date Smoking Tobacco: Never Assessed Sex and Gender Information Value Date Recorded Sex Assigned at Not on file Legal Sex Male 4:06 AM MORTAR MIXER Gender Identity Not on file Sexual Orientation Not on file documented as of this encounter Plan of Treatment Not on file documented as of this encounter Visit Diagnoses Diagnosis Unspecified otitis media- Primary Acute pharyngitis documented in this encounter Care Teams Blind Hooker Relationship Specialty Start Date End Date Mk García MD [address] [phone] PCP - General Family Practice 01/30/17 documented as of this encounter
--- OUTSIDE RECORDS SUMMARY | 2025-07-18 22:14 | XMS_ITS | Encounter Summary ---
Author Organization [facility] Address [address] [place] [address] Care Team Providers Care Spool Hauler Name Role Phone Mk García MD Primary Care Provider +1 [phone] Encounter Details Date Type Department Care Team (Latest Contact Info) Description 07/01/2006 Outpatient Historical [facility] Family Medicine- [place] [address] [place] [address] Zach Patricia MD [address] [place] [address] Unspecified Otitis Media (Primary Dx) Social History Tobacco Use Types Packs/Day Years Used Date Smoking Tobacco: Never Assessed Sex and Gender Information Value Date Recorded Sex Assigned at Not on file Legal Sex Male 4:06 AM DIRECTOR OF RETAIL 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
--- OUTSIDE RECORDS SUMMARY | 2025-07-18 22:14 | XMS_ITS | Encounter Summary ---
Author Organization [facility] Address [address] [place] [address] Care Team Providers Care Breaker Oiler Name Role Phone Mk García MD Primary Care Provider +1 [phone] Encounter Details Date Type Department Care Team (Latest Contact Info) Description 04/09/2006 Outpatient [facility] Medicine- [address] [phone] Salome Whiteside MD [address] [place] [phone] Routine Child Health Exam (Primary Dx) Social History Tobacco Use Types Packs/Day Years Used Date Smoking Tobacco: Never Assessed Sex and Gender Information Value Date Recorded Sex Assigned at Not on file Legal Sex Male 4:06 AM LOWER IN SUPERVISOR Gender Identity Not on file Sexual Orientation Not on file documented as of this encounter Plan of Treatment Not on file documented as of this encounter Visit Diagnoses Diagnosis Routine child health exam- Primary Routine or child health check documented in this encounter Care Teams Breaker Oiler Relationship Specialty Start Date End Date Mk García MD [address] [facility] [address] [place] [phone] PCP - General Family Practice 01/30/17 documented as of this encounter
--- OUTSIDE RECORDS SUMMARY | 2025-07-18 22:14 | XMS_ITS | Clinical Summary ---
Author Organization [facility] Address [address] [place] [address] Care Team Providers Care Human Insights Lead Ads Marketing Name Role Phone Mk García MD Primary Care Provider +1 [phone] Allergies No known active allergies Medications citalopram (CeleXA) 40 mg tablet Take 1 Tablet (40 mg) by mouth daily. 30 Tablet 6 03/29/2021 Active Active Problems Problem Noted Date Diagnosed Date Insomnia 01/04/2020 OM (otitis media) 08/28/2011 Immunizations Immunization Administration Dates Next Due (ADACEL/BOOSTRIX)(10 YR UP) TDAP VACCINE, 0.5ML, IM 04/29/2019 (INFANRIX)(6 WKS-6 YRS) DIPT HERIA, TETANUS TOXOIDS, AND ACCELLULAR PERTUSSIS VACCINE (DTAP), 0.5 ML IM 06/04/2007,04/09/2006,02/05/2006,12/01 (IPOL)(6 WKS AND UP) POLIOVI AMRITA VACCINE, INACTIVATED (IPV), 3 DOSE, SUBCUT OR IM 04/09/2006,02/05/2006,2005 (MENACTRA)(9 MO-55 YR) MENIN GOCOCCAL POLYSACCHARIDE A, C, Y AND W-135 DIPTHERIA TOXOID CONJUGATE VACCINE, (PF), 0.5ML, IM 04/29/2019 (VARIVAX)(12 MOS UP)VARICELL A VIRUS VACCINE (PF) 0.5 ML, SUB CUT 05/20/2010,10/06/2006 Dt Dtp Dtap Vaccine 06/04/2007, 6,02/05/2006,12/01 HIB, Unspecified Formulation 06/04/2007, 04/09/2006,02/05/2006,12/01 Hepatitis B Vaccine 04/09/2006,02/05/2006,2005 IPV/OPV 04/09/2006,02/05/2006,2005 Influenza Seasonal Unspecifi ed Formulation IM 07/19/2018,10/06/2006,09/08/2006 Pneumococcal 7-valent conjug ate vaccine IM 10/06/2006,04/09/2006,02/05/2006,12/01 Family History Medical History Relation Name Comments Healthy Father Other Maternal Grandfather arthrit is, suicide Healthy Maternal Grandmother Healthy Mother Diabetes Paternal Grandfather Respiratory Disease Paternal Grandmother Breast Cancer Neg Hx Colon Cancer Neg Hx Relation Name Status Comments Father Alive Maternal Grandfather Maternal Grandmother Alive Mother Alive Paternal Grandfather Paternal Grandmother Social History Tobacco Use Types Packs/Day Years Used Date Smoking Tobacco: Never Smokeless Tobacco: Never Alcohol Use Standard Drinks/Week Comments No 0 (1 standard drink = 0.6 oz pur e alcohol) Sex and Gender Information Value Date Recorded Sex Assigned at Not on file Legal Sex Male 4:06 AM PRIVACY COMPLIANCE MANAGER Gender Identity Not on file Sexual Orientation Not on file Occupation Industry Job Start Date Job End Date Not on file Not on file Not on file Not on file Not on file Not on file Not on file Not on file Last Filed Vital Signs Vital Sign Reading Time Taken Comments Blood Pressure 120/72 02/13/2021 3:50 PM CDT Pulse 82 02/13/2021 3:50 PM CDT Temperature 36.8 C (98.2 F) 02/13/2021 3:50 PM CDT Respiratory Rate 16 02/13/2021 3:50 PM CDT Oxygen Saturation 99% 02/13/2021 3:50 PM CDT Inhaled Oxygen Concentration - - Weight 73.5 kg (162 lb) 02/13/2021 3:50 PM CDT Height 171.5 cm (5' 7.5 ) 02/13/2021 3:50 PM CDT Body Mass Index 25 02/13/2021 3:50 PM CDT Body Mass Index Percentile 90.22% 02/13/2021 3:5 0 PM CDT Growth Chart: CDC (Boys, 2-2 0 Years) Plan of Treatment Health Maintenance Due Date Last Done Comments CHLAMYDIA SCREENING (ANNUAL) 11-24 YEARS 2016 HPV VACCINES (1 - Male 3-dos e series) 2020 INFLUENZA VACCINE (#1) 2025 8, 10/06/2006, 09/08/2006 DTAP/TDAP/TD VACCINES (6 - T d or Tdap) 04/29/2029 04/29/2019, 06/04/2007, 06/04/2007, Additional history exists HEPATITIS B VACCINES Completed 04/09/2006, 02/05/2006, 2005 Care Teams Human Insights Lead Ads Marketing Relationship Specialty Start Date End Date Mk García MD [address] [phone] PCP - General Family Practice 01/30/17
--- OUTSIDE RECORDS SUMMARY | 2025-07-18 22:14 | XMS_ITS | Encounter Summary ---
Author Organization [facility] Address [address] [place] [address] Care Team Providers Care Pattern Hand Name Role Phone Mk García MD Primary Care Provider [phone] [phone] Reason for Referral * Outpatient Services (Routine) - Closed Specialty Diagnoses / Procedures Referred By Michaela t Referred To Contact Radiology Diagnoses Headache(784.0) Procedures CT HEAD WO CONTRAST Zach Drummond Sr., FNP [address] [place] [address] Phone: tel: fax: [facility] CT Scan [place] [address] [facility] [address] [place] [address] Phone: tel: fax: Referral ID Status Reason Start Date Expiration Date Visits Re quested Visits Authorized [id number] Closed 12/13/2012 01/08/2013 1 1 GHT CALLER Encounter Details Date Type Department Care Team (Latest Contact Info) Description 12/13/2012 Ancillary Orders [facility] Scheduling [address] [facility] [address] [place] [address] Zach Drummond Sr., FNP [address] [place] [id number] Headache (Primary Dx) Social History Tobacco Use Types Packs/Day Years Used Date Smoking Tobacco: Never Assessed Sex and Gender Information Value Date Recorded Sex Assigned at Not on file Legal Sex Male 4:06 AM FREIGHT CALLER Gender Identity Not on file Sexual Orientation Not on file Occupation Industry Job Start Date Job End Date Not on file Not on file Not on file Not on file documented as of this encounter Plan of Treatment Not on file documented as of this encounter Results * CT HEAD WO CONTRAST (12/15/2012 1:43 PM FREIGHT CALLER) Anatomical Region Laterality Modality Head Computed Tomogra phy 12/15/2012 1:35 PM FREIGHT CALLER Narrative 12/15/2012 3:30 PM FREIGHT CALLER PROCEDURE HEAD CT noncontrast 15 December 2012 TECHNIQUE Noncontrast computed cerebral tomography was obtained with 44 axial images. Bone window reconstructions are also obtained. DESCRIPTION Noncontrast computed cerebral tomography shows no intracranial hemorrhage. There is no midline shift, mass effect, or edema. No extra-axial fluid collection is seen. Bone window settings show intact calvarium. There is mucosal thickening of the ethmoid and maxillary sinuses. IMPRESSION 1. negative noncontrast head CT 2. chronic sinusitis changes Procedure Note Elvin Dupont MD - 12/15/[address] noncontrast 15 December 2012 TECHNIQUE Noncontrast computed cerebral tomography was obtained with 44 axial images. Bone window reconstructions are also obtained. DESCRIPTION Noncontrast computed cerebral tomography shows no intracranial hemorrhage. There is no midline shift, mass effect, or edema. No extra-axial fluid collection is seen. Bone window settings show intact calvarium. There is mucosal thickening of the ethmoid and maxillary sinuses. IMPRESSION 1. negative noncontrast head CT 2. chronic sinusitis changes Zach Drummond Sr., AUDIO VISUAL EQUIPMENT RENTAL CLERK CT ORDERABLES F inal Result documented in this encounter Visit Diagnoses Diagnosis Headache(784.0)- Primary Headache Headache(784.0) Headache documented in this encounter Care Teams Pattern Hand Relationship Specialty Start Date End Date Mk García MD [address] [facility] [address] [place] [phone] PCP - General Family Practice 01/30/17 documented as of this encounter
--- OUTSIDE RECORDS SUMMARY | 2025-07-18 22:14 | XMS_ITS | Encounter Summary ---
Author Organization [facility] Address [address] [place] [address] Care Team Providers Care Tissue Rewinder Name Role Phone Mk García MD Primary Care Provider +1 [phone] Encounter Details Date Type Department Care Team (Latest Contact Info) Description 08/11/2006 Outpatient [facility] Medicine [place] [address] [phone] Meg Hull NP NO ADDRESS ON FILE Acute Tonsillitis (Primary Dx); Other Mucopurulent Conjunctivitis Social History Tobacco Use Types Packs/Day Years Used Date Smoking Tobacco: Never Assessed Sex and Gender Information Value Date Recorded Sex Assigned at Not on file Legal Sex Male 4:06 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
--- OUTSIDE RECORDS SUMMARY | 2025-07-18 22:15 | XMS_ITS | Encounter Summary ---
Author Organization [facility] Address [address] [facility] Attn: [place] [address] Care Team Providers Care Roll Form Operator Name Role Phone Starla Campbell Primary Care Provider Encounter Details Date Type Department Care Team (Latest Contact Info) Description 07/17/2025 Travel Social History Tobacco Use Types Packs/Day Years [...] worry about transportation for future doctor visits, strip picker medication, etc.? No 2024 Housing Stability [...] Recorded Patient needs follow up regardin 07/18/2025 Sex and Gender Information Value Date Recorded Sex Assigned at Not on file Legal Sex Male 12:21 AM SHELVING SUPERVISOR Gender Identity Not on file Sexual Orientation Not on file documented as of this encounter Plan of Treatment Not on file documented as of this encounter Visit Diagnoses Not on filedocumented in this encounter Care Teams Roll Form Operator Relationship Specialty Start Date End Date Starla Campbell DO [address] [place] [address] PCP - General Family Practice 01/22/24 documented as of this encounter
--- OUTSIDE RECORDS SUMMARY | 2025-07-18 22:16 | XMS_ITS | Encounter Summary ---
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
--- NOTE | 2025-07-18 22:40 | W.ED.BACK ---
HPI - Back Pain/Injury General: Chief Complaint: Back Pain/Injury Stated Complaint: Back Pain Time Seen by Provider: 07/18/25 22:08 History of Present Illness: 19-year-old male past medical history significant for alpha gal, ADHD, psychiatric disorders, presenting the emergency department with back pain x 2 to 3 days worsening today with associated nausea mild vomiting, no abdominal pain, no diarrhea, no urinary frequency urgency or hematuria, no fevers or chills, no falls or trauma, no weakness numbness or tingling to the lower extremities, no incontinence of urine or stool, no difficulty with gait. Related Data Previous Rx's ?Medication ?Instructions ?Recorded methocarbamol 750 mg tablet 750 mg PO Q6H PRN spasms #20 tabs 10/29/24 ondansetron 4 mg disintegrating 4 mg PO Q6H PRN nausea and 10/29/24 tablet vomiting #14 tabs ketorolac 10 mg tablet 10 mg PO TID PRN pain #10 tabs 11/07/24 lansoprazole 30 mg capsule,delayed 30 mg PO DAILY #30 caps 11/07/24 release (Prevacid) ibuprofen 600 mg tablet 600 mg PO Q6H PRN pain #30 tabs 07/19/25 Allergies Allergy/AdvReac Type Severity Reaction Status Date / Time Alpha-Gal Allergy ALGY-Anaphy Verified 07/18/25 22:18 ([id number]-5,3-Gala laxis Milk Containing Products Allergy ALGY-Anaphy Verified 07/18/25 22:18 (Dairy) laxis sesame oil Allergy ALGY-Anaphy Verified 07/18/25 22:18 laxis shrimp Allergy ALGY-Anaphy Verified 07/18/25 22:18 laxis PFSH ED PFSH: Medical History Nicotine dependence due to vaping tobacco product Autism spectrum disorder Attention deficit hyperactivity disorder (ADHD), combined type, moderate Chronic post-traumatic stress disorder Social History Smoking and tobacco/nicotine status: never used tobacco/nicotine Physical Exam Narrative: EXAM NARRATIVE: Gen: A&Ox4, no acute distress, nontoxic appearing HEENT: Normocephalic, atraumatic, no scleral icterus, external ears normal, moist mucous membranes Neck: Supple, full range of motion, no observable masses Lungs: No Respiratory distress, Lungs clear to auscultation bilaterally no rales, rhonchi, wheezing CV: Regular rate and rhythm, no murmur, no pitting edema to lower extremities bilaterally Abdomen: Soft, nondistended, nontender to palpation MSK: No joint swelling, FROM all 4 extremities, no midline tenderness palpation of the thoracic or lumbar spine, no bruising swelling deformity or skin lesions, no CVA tenderness bilaterally Skin: No rashes, petechiae, lesions. Normal color per patient. Neuro: Alert and oriented, no slurred speech, sensation and strength grossly intact all 4 extremities Psych: Appropriate for situation. Course Reevaluation(s): Reevaluation #1: Patient reassessed at this time, still has some back pain but symptoms improved, no episodes of vomiting in the ED, heart rate improved now to the 60s, stable for discharge Time: 00:21 Vital Signs: Vital signs: Vital Signs Temperature 98.2 F 07/18/25 22:14 Pulse Rate 68 07/19/25 00:02 Respiratory Rate 16 07/19/25 00:02 Blood Pressure 122/67 07/19/25 00:02 Pulse Oximetry 96 07/19/25 00:02 Oxygen Delivery Me thod Room Air 07/19/25 00:02 MDM - Back Pain/Injury Medical Decision Making 19-year-old male presenting to the emergency department with nonspecific back pain x 2 days worsening today, 1 episode of vomiting, normal abdominal exam, mildly tachycardic but otherwise clinically well-appearing with a benign exam, plan for labs, trial of antiemetics NSAIDs fluids, reassess for disposition. Clinically no evidence of acute cord compression or neurologic pathology, no CVA tenderness or urinary symptoms makes kidney stone or ascending UTI less likely although considered. Labs Labs with no leukocytosis or anemia, mild ketones in the urine otherwise normal blood work without CHRIS or significant electrolyte abnormality, ALT minimally elevated but LFTs otherwise benign and lipase normal 07/18/25 22:49 07/18/25 22:49 Laboratory Results WBC 7.27 10^3/uL (4.5-13.0) 07/18/25 22:49 RBC 4.24 10^6/uL (3.85-5.65) 07/18/25 22:49 Hgb 13.50 g/dL (13.2-15.6) 07/18/25 22:49 Hct 38.1 % (37-53) 07/18/25 22:49 MCV 89.9 fl (82-101) 07/18/25 22:49 MCH 31.8 pg (27-33) 07/18/25 22:49 MCHC 35.4 g/dL (30-55) 07/18/25 22:49 RDW 12.2 % (12.1-15.1) 07/18/25 22:49 Plt Count 201 10^3/cmm (157-399) 07/18/25 22:49 MPV 11.2 fL (7.4-10.4) H 07/18/25 22:49 Neut % (Auto) 75.3 % 07/18/25 22:49 Lymph % (Auto) 17.9 % 07/18/25 22:49 [place] % (Auto) 6.1 % 07/18/25 22:49 Eos % (Auto) 0.1 % 07/18/25 22:49 Baso % (Auto) 0.3 % 07/18/25 22:49 Neut # (Auto) 5.48 10^3/uL (1.8-8.0) 07/18/25 22:49 Lymph # (Auto) 1.3 10^3/uL (1.5-6.5) L 07/18/25 22:49 [place] # (Auto) 0.4 10^3/uL (0.2-0.9) 07/18/25 22:49 Eos # (Auto) 0.0 10^3/uL (0.0-0.8) 07/18/25 22:49 Baso # (Auto) 0.0 10^3/uL (0.0-0.1) 07/18/25 22:49 Nucleated RBC % (auto) 0 % 07/18/25:49 Nucleated RBCs # 0.0 /100WBC 07/18/25 22:49 Sodium 139 mmol/L (136-145) 07/18/25 22:49 Potassium 3.5 mmol/L (3.5-5.1) 07/18/25 22:49 Chloride 101 mmol/L (98-107) 07/18/25 22:49 Carbon Dioxide 22 mmol/L (22-29) 07/18/25 22:49 Anion Gap 19.5 (5-19) H 07/18/25 22:49 BUN 8 mg/dL (6-20) 07/18/25 22:49 Creatinine 0.7 mg/dL (0.7-1.2) 07/18/25 22:49 GFR Calculation 145.3 mL/min (90-130) H 07/18/25 22:49 Glucose 98 mg/dL (65-115) 07/18/25 22:49 Calculated Osmolality 286 mOsm/kg (285-295) 07/18/25 22:49 Calcium 9.1 mg/dL (8.5-10.5) 07/18/25 22:49 Total Bilirubin 0.5 mg/dL (0.15-1.2) 07/18/25 22:49 AST 27 U/L (0-40) 07/18/25 22:49 ALT 73 U/L (0-41) H 07/18/25 22:49 Alkaline Phosphatase 73 U/L (40-130) 07/18/25 22:49 Total Protein 7.4 g/dL (6.6-8.7) 07/18/25 22:49 Albumin 4.8 g/dL (3.5-5.2) 07/18/25 22:49 Globulin 2.6 g/dL (1.3-4.6) 07/18/25 22:49 Lipase 18 U/L (13-60) 07/18/25 22:49 Urine Color Yellow (Yellow) 07/18/25 23:54 Urine Appearance Clear (CLEAR) 07/18/25 23:54 Urine pH 6.5 (5-7) 07/18/25 23:54 Ur Specific [place] 1.014 (1.005-1.030) 07/18/25 23:54 Urine Protein Negative (Negative) 07/18/25 23:54 Urine Glucose (UA) Negative (Normal) 07/18/25 23:54 Urine Ketones 2+ (Negative) H 07/18/25 23:54 Urine Blood Negative (Negative) 07/18/25 23:54 Urine Nitrate Negative (Negative) 07/18/25 23:54 Urine Bilirubin Negative (Negative) 07/18/25 23:54 Urine Urobilinogen 1.0 mg/dL (Negative) 07/18/25 23:54 Ur Leukocyte Esterase Negative (Negative) 07/18/25 23:54 Amorphous Sediment Not Reportable 07/18/25 23:54 No radiology studies performed this visit Discharge Plan Discharge Patient Disposition: Home Clinical Impression: Thoracic back pain Condition: Stable Prescriptions: New ibuprofen 600 mg tablet 600 mg PO Q6H PRN (Reason: pain) Qty: 30 0RF No Action methocarbamol 750 mg tablet 750 mg PO Q6H PRN (Reason: spasms) Qty: 20 0RF ondansetron 4 mg tablet,disintegrating 4 mg PO Q6H PRN (Reason: nausea and vomiting) Qty: 14 0RF lansoprazole [Prevacid] 30 mg capsule,delayed release(DR/EC) 30 mg PO DAILY Qty: 30 0RF ketorolac 10 mg tablet 10 mg PO TID PRN (Reason: pain) Qty: 10 0RF Discharge Orders: Discharge ED (Routine); Ordered 07/19/25 Ordered By: Gallito Pool Referrals: Starla Campbell DO [Primary Care Provider, [facility]] Patient Instructions: Opioid Safety, Pain Management, Patient Portal & [place] Instructions Print Language: Swedish Coding Level of Care Code ED Pvc Loader for Katie Perez
[2025-07-18] MEDS: ondansetron 2 mg/ML SDV 2 mL 4 MG IVP (22:45)
[2025-07-18 22:57] LABS: Hematocrit 38.1 % (37-53); Hemoglobin 13.50 g/dL (13.2-15.6); Mean Corpuscular HGB Conc 35.4 g/dL (30-55); Mean Corpuscular Hemoglobin 31.8 pg (27-33); Mean Corpuscular Volume 89.9 fl (82-101); Nucleated Red Blood Cells % 0 %; Platelet Count 201 10^3/cmm (157-399); Red Blood Count 4.24 10^6/uL (3.85-5.65); White Blood Count 7.27 10^3/uL (4.5-13.0)
[2025-07-18] MEDS: oxyCODONE-APAP 5-325 mg Tablet 1 TAB PO (23:16)
[2025-07-18 23:23] LABS: Alanine Aminotransferase 73 U/L (0-41); Albumin Level 4.8 g/dL (3.5-5.2); Alkaline Phosphatase 73 U/L (40-130); Anion Gap 19.5 (5-19); Aspartate Amino Transferase 27 U/L (0-40); Blood Urea Nitrogen 8 mg/dL (6-20); Calcium 9.1 mg/dL (8.5-10.5); Carbon Dioxide 22 mmol/L (22-29); Chloride 101 mmol/L (98-107); Creatinine Clr Calc Pharmacy 164.8308; Globulin 2.6 g/dL (1.3-4.6); Glucose 98 mg/dL (65-115); Lipase 18 U/L (13-60); Osmolality Calculated 286 mOsm/kg (285-295); Potassium 3.5 mmol/L (3.5-5.1); Sodium 139 mmol/L (136-145); Total Protein 7.4 g/dL (6.6-8.7)
[2025-07-19 00:02] VITALS: BP 122/67; PULSE 68; RESP 16; O2SAT 96
[2025-07-19 00:08] LABS: Glucose Urine UA Negative (Normal); Nitrate Urine Negative (Negative); Specific Gravity, Urine 1.014 (1.005-1.030)
[2025-07-19 00:24] LABS: UA Manual Slide Review YES
[2025-07-19 00:30] VITALS: BP 122/67; PULSE 91; RESP 14; O2SAT 99
== END 2025-07-19 00:33 | disposition home or self-care (01) ==
PROVIDERS: Emergency Provider Student in an Organized Health Care Education/Training Program; PCP Family Medicine
DX: M54.6 Pain in thoracic spine (principal)
CPT/HCPCS: 36415; 80053; 81001; 83690; 85025; 96361; 96374; 96375; 99284; J1885; J2405; J7030; J9999